=== PATIENT | female | born 1970 | race African-American/Black ===

== ENCOUNTER 2018-07-21 16:40 | Emergency (ER) | payer BC ==
--- OUTSIDE RECORDS SUMMARY | 2018-07-21 16:42 | XMS REPORT ---
:1970 [facility] Address [address] [place] [address] Care Team Providers Name Role Phone Unavailable Unavailable Unavailable Payers Payer Name Policy Type Policy Number Effective Date Expiration Date Problems This patient has no known problems. Allergies, Adverse Reactions, Alerts Allergy Allergy Status Severity Reaction(s) Onset Inactive Treating Comments Name Type Date Date Clinician No Known DA Active U 2018-06 Allergies -17 00:00:0 0 Medications This patient has no known medications.
--- NOTE | 2018-07-21 17:13 | EDPHYS ---
Physician Documentation [facility] Name: Emani Roy Age: 48 yrs Sex: Female : 1970 Arrival Date: 07/21/2018 Time: 16:41 Bed 20 Private MD: Ochoa Barrera B ED Physician Adolfo Frias HPI: 07/21 17:16 This 48 yrs old Black Female presents to ER via Ambulatory with complaints of Hip Pain, snw Leg Pain. 17:16 The patient or guardian reports decreased range of motion, pain. that occurred at home, snw sustained from a chronic condition, There is no obvious deformity, The patient is able to self ambulate. The patient is able to bear their full body weight. The patient's discomfort radiates to the right hamstring, posterior aspect of right knee and right calf. The complaints affect the right hip. Onset: The symptoms/episode began/occurred suddenly, yesterday. Associated signs and symptoms: Loss of consciousness: the patient experienced no loss of consciousness. Severity of symptoms: At their worst the symptoms were moderate. The patient has experienced similar episodes in the past. 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 - Social history:: Smoking status: Patient/guardian denies using tobacco, Patient/guardian denies using alcohol. - Ebola Screening: : Patient negative for fever greater than or equal to 101.5 degrees Fahrenheit, and additional compatible Ebola Virus Disease symptoms Patient denies exposure to infectious person Patient denies travel to an Ebola-affected area in the 21 days before illness onset. ROS: 17:16 Constitutional: Negative for fever, chills, and weight loss, Eyes: Negative for injury, snw pain, redness, and discharge, ENT: Negative for injury, pain, and discharge, Neck: Negative for injury, pain, and swelling, Cardiovascular: Negative for chest pain, palpitations, and edema, Respiratory: Negative for shortness of breath, cough, wheezing, and pleuritic chest pain, Abdomen/GI: Negative for abdominal pain, nausea, vomiting, diarrhea, and constipation, Back: Negative for injury and pain, : Negative for injury, bleeding, discharge, and swelling, Skin: Negative for injury, rash, and discoloration, Neuro: Negative for headache, weakness, numbness, tingling, and seizure. 17:16 MS/extremity: Positive for decreased range of motion, pain, tenderness, of the right leg and right hip. Exam: 17:14 Constitutional: This is a well developed, well nourished patient who is awake, alert, snw and in no acute distress. Head/Face: Normocephalic, atraumatic. Eyes: Pupils equal round and reactive to light, extra-ocular motions intact. Lids and lashes normal. Conjunctiva and sclera are non-icteric and not injected. Cornea within normal limits. Periorbital areas with no swelling, redness, or edema. ENT: Nares patent. No nasal discharge, no septal abnormalities noted. Tympanic membranes are normal and external auditory canals are clear. Oropharynx with no redness, swelling, or masses, exudates, or evidence of obstruction, uvula midline. Mucous membranes moist. Neck: Trachea midline, no thyromegaly or masses palpated, and no cervical lymphadenopathy. Supple, full range of motion without nuchal rigidity, or vertebral point tenderness. No Meningismus. Chest/axilla: Normal chest wall appearance and motion. Nontender with no deformity. No lesions are appreciated. Cardiovascular: Regular rate and rhythm with a normal S1 and S2. No gallops, murmurs, or rubs. Normal PMI, no JVD. No pulse deficits. Respiratory: Lungs have equal breath sounds bilaterally, clear to auscultation and percussion. No rales, rhonchi or wheezes noted. No increased work of breathing, no retractions or nasal flaring. Abdomen/GI: Soft, non-tender, with normal bowel sounds. No distension or tympany. No guarding or rebound. No evidence of tenderness throughout. Back: No spinal tenderness. No costovertebral tenderness. Full range of motion. Skin: Warm, dry with normal turgor. Normal color with no rashes, no lesions, and no evidence of cellulitis. Neuro: Awake and alert, GCS 15, oriented to person, place, time, and situation. Cranial nerves II-XII grossly intact. Motor strength 5/5 in all extremities. Sensory grossly intact. Cerebellar exam normal. Normal gait. Psych: Awake, alert, with orientation to person, place and time. Behavior, mood, and affect are within normal limits. 17:14 Musculoskeletal/extremity: Extremities: grossly normal except: ROM: limited active range of motion due to pain, in the right hip, Circulation is intact in all extremities. Sensation intact. tenderness from right hip down right posterior leg. Vital Signs: 16:46 BP 100 / 64; Pulse 76; Resp 18; Temp 97.7(TE); Pulse Ox 99% on R/A; Weight 137.89 kg; hj Height 5 ft. 6 in. (167.64 cm); Pain 8/10; 16:46 Body Mass Index 49.07 (137.89 kg, 167.64 cm) hj MDM: 16:59 Patient medically screened. snw 17:17 Data reviewed: vital signs, nurses notes. Data interpreted: Pulse oximetry: on room air snw is 99 %. Interpretation: normal. Counseling: I had a detailed discussion with the patient and/or guardian regarding: the historical points, exam findings, and any diagnostic results supporting the discharge/admit diagnosis, lab results, the need for outpatient follow up, to return to the emergency department if symptoms worsen or persist or if there are any questions or concerns that arise at home. Special discussion: Based on the history and exam findings, there is no indication for further emergent testing or inpatient evaluation. I discussed with the patient/guardian the need to see the wind operations supervisor for further evaluation of the symptoms, appt tomorrow. Administered Medications: 17:15 Drug: fentaNYL (PF) 75 mcg Route: IM; Site: right deltoid; jl7 17:28 Follow up: Response: No adverse reaction [facility] 17:15 Drug: Valium 2 mg Route: PO; 7 17:28 Follow up: Response: No adverse reaction [facility] Disposition: 17:45 Co-signature as Attending Physician, Adolfo Frias MD. rn Disposition: 07/21/18 17:12 Discharged to Home. Impression: Sciatica, right side. - Condition is Stable. - Discharge Instructions: Sciatica, Cryotherapy, Heat Therapy. - Prescriptions for orphenadrine citrate 100 mg Oral Tablet Sustained Release - take 1 tablet by ORAL route 2 times per day As needed; 20 tablet. - Medication Reconciliation Form, Thank You Letter, Antibiotic Education, Prescription Opioid Use form. - Follow up: Private Physician; When: Tomorrow; Reason: Recheck today's complaints, Continuance of care. Follow up: Emergency Department; When: As needed; Reason: Worsening of condition. Signatures: Sheeba Atkinson, MANAGER WHOLESALE-C MANAGER WHOLESALE-Csnw Adolfo Frias MD MD rn Joaquin, Henry, RN RN hj Leal, Jahala, RN RN jl7 Corrections: (The following items were deleted from the chart) 17:29 17:12 07/21/2018 17:12 Discharged to Home. Impression: Sciatica, right side. Condition jl7 is Stable. Forms are Medication Reconciliation Form, Thank You Letter, Antibiotic Education, Prescription Opioid Use. Follow up: Private Physician; When: Tomorrow; Reason: Recheck today's complaints, Continuance of care. Follow up: Emergency Department; When: As needed; Reason: Worsening of condition. snw
--- NOTE | 2018-07-21 17:13 | ER ---
Nurse's Notes [facility] Name: Emani Roy Age: 48 yrs Sex: Female : 1970 Arrival Date: 07/21/2018 Time: 16:41 Bed 20 Private MD: Ochoa Barrera B Diagnosis: Sciatica, right side Presentation: 07/21 16:43 Presenting complaint: Patient states: earlier today i started having pain from R hip hj all the way down to the R leg; denies trauma to the area; reports swelling; denies chest pain;. Transition of care: patient was not received from another setting of care. Onset of symptoms was July 21, 2018. Risk Assessment: Do you want to hurt yourself or someone else? Patient reports no desire to harm self or others. Initial Sepsis Screen: Does the patient meet any 2 criteria? No. Patient's initial sepsis screen is negative. Does the patient have a suspected source of infection? No. Patient's initial sepsis screen is negative. Care prior to arrival: None. 16:43 Method Of Arrival: Ambulatory 16:43 Acuity: ARIANNE 4 hj Triage Assessment: 16:46 General: Appears in no apparent distress. uncomfortable, Behavior is calm, cooperative, hj appropriate for age. Pain: Complains of pain in R hip, R leg. 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 - Social history:: Smoking status: Patient/guardian denies using tobacco, Patient/guardian denies using alcohol. - Ebola Screening: : Patient negative for fever greater than or equal to 101.5 degrees Fahrenheit, and additional compatible Ebola Virus Disease symptoms Patient denies exposure to infectious person Patient denies travel to an Ebola-affected area in the 21 days before illness onset. Screenin:45 Abuse screen: Denies threats or abuse. Denies injuries from another. Nutritional hj screening: No deficits noted. Tuberculosis screening: No symptoms or risk factors identified. Fall Risk None identified. Assessment: 17:00 General: Appears in no apparent distress. uncomfortable, Behavior is calm, cooperative, jl7 appropriate for age. Pain: Complains of pain in right hip Pain radiates to right leg Pain currently is 8 out of 10 on a pain scale. Quality of pain is described as sharp, shooting, Is continuous. Neuro: Level of Consciousness is awake, alert, obeys commands, Oriented to person, place, time, situation. Cardiovascular: Patient's skin is warm and dry. Respiratory: Airway is patent Respiratory effort is even, unlabored, Respiratory pattern is regular, symmetrical. Derm: Skin is pink, warm \T\ dry. Musculoskeletal: Range of motion: intact in all extremities. Vital Signs: 16:46 BP 100 / 64; Pulse 76; Resp 18; Temp 97.7(TE); Pulse Ox 99% on R/A; Weight 137.89 kg; hj Height 5 ft. 6 in. (167.64 cm); Pain 8/10; 16:46 Body Mass Index 49.07 (137.89 kg, 167.64 cm) hj ED Course: 16:41 Patient arrived in ED. as 16:42 Ochoa Barrera MD is Private Physician. as 16:44 Triage completed. hj 16:46 Arm band placed on left wrist. hj 16:47 Patient has correct armband on for positive identification. Bed in low position. Call hj light in reach. Side rails up X 1. 16:50 Sheeba Atkinson FNP-C is PHCP. snw 16:50 Adolfo Frias MD is Attending Physician. snw 17:03 Barbie Knapp RN is Primary Nurse. jl7 17:28 No provider procedures requiring assistance completed. Patient did not have IV access jl7 during this emergency room visit. Administered Medications: 17:15 Drug: fentaNYL (PF) 75 mcg Route: IM; Site: right deltoid; jl7 17:28 Follow up: Response: No adverse reaction jl7 17:15 Drug: Valium 2 mg Route: PO; jl7 17:28 Follow up: Response: No adverse reaction jl7 Outcome: 17:12 Discharge ordered by MD. knutson 17:28 Discharged to home ambulatory. jl7 17:28 Condition: stable 17:28 Discharge instructions given to patient, Instructed on discharge instructions, follow up and referral plans. medication usage, Demonstrated understanding of instructions, follow-up care, medications, Prescriptions given X 1. 17:29 Patient left the ED. jl7 Signatures: Sheeba Atkinson, EDUCATIONAL GUIDANCE COUNSELOR-C EDUCATIONAL GUIDANCE COUNSELOR-Csnw Cecilia Higgins Henry RN RAISA Barbie Knapp RN RN jl7 Corrections: (The following items were deleted from the chart) 16:48 16:46 Pulse 76bpm; Resp 18bpm; Pulse Ox 99% RA; Temp 97.7F Temporal; 137.89 kg; Height hj 5 ft. 6 in.; BMI: 49.0; Pain 8/10; hj 16:49 16:46 Pulse 76bpm; Resp 18bpm; Pulse Ox 99% RA; Temp 97.7F Temporal; 137.89 kg; Height hj 5 ft. 6 in.; BMI: 49.0; Pain 8/10; hj
[2018-07-21] MEDS ORDERED: DIAZEPAM 2 MG TABLET ONE (17:26)
[2018-07-21] MEDS ORDERED: FENTANYL CITR 100 MCG/2 ML ONE (17:26)
== END 2018-07-21 17:29 | disposition home or self-care (01) ==
LOC: ER 16:40
DX: M54.31 Sciatica, right side (principal); M10.9 Gout, unspecified
CPT/HCPCS: 96372; 99283; J3010

== ENCOUNTER 2019-02-22 18:26 | Emergency (ER) | payer BC ==
--- OUTSIDE RECORDS SUMMARY | 2019-02-22 18:36 | XMS REPORT ---
:1970 [facility] Address [address] [place] [id number] Care Team Providers Name Role Phone Unavailable [...]
--- NOTE | 2019-02-22 19:58 | RAD REPORT ---
EXAM DESCRIPTION: CT - Head C Spine Mpr Wo Con - 02/22/2019 7:35 pm CLINICAL HISTORY: Head and neck injury status post fall. Head and neck pain COMPARISON: None. TECHNIQUE: Computed axial tomography of the head and cervical spine was obtained. Sagittal and coronal reconstruction was performed. All CT scans are performed using dose optimization technique as appropriate and may include automated exposure control or mA/KV adjustment according to patient size. FINDINGS: An intracranial bleed is not seen. The ventricles are normal in caliber. An extra-axial fl uid collection is not noted Empty sella turcica. Fluid within the visualized sinuses and mastoids is not seen A cervical fracture is not visualized. No dislocation is noted. The skull and dens are sclerotic IMPRESSION: No acute intracranial abnormality is seen. A cervical fracture is not visualized. If the patient continues to have symptoms to suggest intracra nial /spinal cord pathology then MRI would be recommended The skull and dens are sclerotic. This could be secondary to a metabolic disease, hematologic causes or blastic metastases. This should be correlated clinically
--- NOTE | 2019-02-22 20:18 | RAD REPORT ---
EXAM DESCRIPTION: RAD - Shoulder Left 2 View - 02/22/2019 8:06 pm CLINICAL HISTORY: Left shoulder pain status post fall FINDINGS: No fracture or dislocation is seen.
--- NOTE | 2019-02-22 21:18 | ER ---
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 Mechanism of Injury: Fall from standing position. Trauma event details: Injury occurred in the [facility], Injury occurred: at home. Injury occurred: February 22, 2019 Injury occurred at: 16:30. 18:40 Acuity: ARIANNE 3 aj 19:39 Transition of care: patient was not received from another setting of care. Onset of mg2 symptoms was February 22, 2019. Risk Assessment: Do you want to hurt yourself or someone else? Patient reports no desire to harm self or others. Initial Sepsis Screen: Does the patient meet any 2 criteria? No. Patient's initial sepsis screen is negative. Does the patient have a suspected source of infection? No. Patient's initial sepsis screen is negative. Care prior to arrival: None. 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: 21:44 LMP unknown mg2 Trauma Activation: Not Applicable Physician: ED Physician; Name: ; Notified At: ; Arrived At: Physician: General Surgeon; Name: ; Notified At: ; Arrived At: Physician: Radiology; Name: ; Notified At: ; Arrived At: Physician: Respiratory; Name: ; Notified At: ; Arrived At: Physician: Lab; Name: ; Notified At: ; Arrived At: Historical: - Allergies: 18:42 No Known Drug Allergies; aj - Home Meds: 19:39 allopurinol 300 mg Oral tab 1 tab once daily [Active]; colchicine 0.6 mg Oral tab 1 tab mg2 once daily [Active]; indomethacin 50 mg Oral cap 1 cap 3 times per day [Active]; prednisone 2.5 mg Oral tab [Active]; - PMHx: 19:39 Gout; Lupus; mg2 - Immunization history:: Flu vaccine status is unknown. - Social history:: Smoking status: unknown. - Immunization history: Last tetanus immunization: unknown. - Ebola Screening: : No symptoms or risks identified at this time. Screenin:35 Abuse screen: Denies threats or abuse. Denies injuries from another. Tuberculosis mg2 screening: No symptoms or risk factors identified. 21:43 Nutritional screening: No deficits noted. Fall Risk mg2 Primary Survey: 19:36 NO uncontrolled hemorrhage observed. A: The patient is alert. Airway: patent. mg2 Breathing/Chest: Respiratory pattern: regular, Respiratory effort: spontaneous, unlabored. Circulation: Skin color: pink. Disability Alert. Exposure/Environment: All clothing and personal items were removed. Forensic evidence collection is not deemed to be indicated at this time. Items placed in patient belonging bag. There is no evidence of uncontrolled external bleeding. No obvious injuries are noted at this time. 21:47 Reassessment Breathing/Chest Respiratory pattern Regular Respiratory effort Spontaneous mg2 Unlabored. Secondary Survey: 19:36 HEENT: No deficits noted. Gastrointestinal: No deficits noted. : No deficits noted. mg2 Musculoskeletal: Circulation, motion, and sensation intact. Capillary refill < 3 seconds, Reports pain in left arm and posterior aspect of left shoulder and anterior aspect of left shoulder. Assessment: 18:40 General: Appears in no apparent distress. comfortable, Behavior is calm, cooperative, aj appropriate for age. Pain: Complains of pain in anterior aspect of left shoulder and posterior aspect of left shoulder. Musculoskeletal: Reports pain in anterior aspect of left shoulder and posterior aspect of left shoulder. Vital Signs: 18:40 BP 145 / 81; Pulse 74; Resp 18; Temp 97.6; Pulse Ox 98% on R/A; Weight 142.88 kg; aj Height 5 ft. 6 in. (167.64 cm); 20:33 Pulse 70; Resp 18; Pulse Ox 100% on R/A; mg2 21:40 BP 125 / 78; Pulse 80; Resp 18; Temp 98; Pulse Ox 100% on R/A; Pain 0/10; mg2 18:40 Body Mass Index 50.84 (142.88 kg, 167.64 cm) aj [place] Coma Score: 18:40 Eye Response: spontaneous(4). Verbal Response: oriented(5). Motor Response: obeys aj commands(6). Total: 15. Trauma Score (Adult): 18:40 Eye Response: spontaneous(1); Verbal Response: oriented(1); Motor Response: obeys aj commands(2); Systolic BP: > 89 mm Hg(4); Respiratory Rate: 10 to 29 per min(4); Mikaela Score: 15; Trauma Score: 12 21:40 Eye Response: spontaneous(1); Verbal Response: oriented(1); Motor Response: obeys mg2 commands(2); Systolic BP: > 89 mm Hg(4); Respiratory Rate: 10 to 29 per min(4); Mikaela Score: 15; Trauma Score: 12 ED Course: 18:28 Patient arrived in ED. tw3 18:41 Triage completed. aj 18:42 Arm band placed on right wrist. Patient placed in waiting room, Patient notified of aj wait time. 19:15 Tiburcio Hernandez MD is Attending Physician. ps1 19:35 Mark Pina, RAISA is Primary Nurse. mg2 19:37 CT Head C Spine In Process Unspecified. EDMS 19:39 Patient maintains SpO2 saturation greater than 95% on room air. mg2 19:40 Patient has correct armband on for positive identification. mg2 20:08 XRAY Shoulder LEFT 2 view In Process Unspecified. EDMS 21:45 Thermoregulation: warm blanket given to patient. mg2 21:46 No provider procedures requiring assistance completed. Patient did not have IV access mg2 during this emergency room visit. Administered Medications: No medications were administered Intake: 21:46 PO: 0ml; Total: 0ml. mg2 Outcome: 21:18 Discharge ordered by . ps1 21:46 Discharged to home ambulatory. mg2 21:46 Condition: stable 21:46 Discharge instructions given to patient, Instructed on discharge instructions, follow up and referral plans. medication usage, Demonstrated understanding of instructions, follow-up care, medications, Prescriptions given X 3. 21:46 Patient's length of stay was not longer than 2 hours. 21:47 Patient left the ED. mg2 Signatures: Dispatcher [employer] EDMarivel Umana, RN RN Sushma Wagner tw3 Tiburcio Hernandez MD MD ps1 Mark Pina, RAISA KLINE mg2
--- NOTE | 2019-02-22 21:18 | EDPHYS ---
Physician Documentation [facility] Name: Emani Roy Age: 48 yrs Sex: Female : 1970 Arrival Date: 02/22/2019 Time: 18:28 Bed 24 Private MD: ED Physician Tiburcio Hernandez HPI: 02/22 21:13 This 48 yrs old Black Female presents to ER via Ambulatory with complaints of Fall ps1 Injury, Shoulder Pain. 21:13 patient states that she fell over her husbands boot. No LOC. Pain localized to left ps1 shoulder and neck. Paraspinal and trapezius spasm. No obvious fracture. No blood thinners. 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 - Social history:: Smoking status: unknown. - Immunization history: Last tetanus immunization: unknown. - Ebola Screening: : No symptoms or risks identified at this time. ROS: 21:13 Constitutional: Negative for fever, chills, and weight loss, Eyes: Negative for injury, ps1 pain, redness, and discharge, ENT: Negative for injury, pain, and discharge, Cardiovascular: Negative for chest pain, palpitations, and edema, Respiratory: Negative for shortness of breath, cough, wheezing, and pleuritic chest pain, Abdomen/GI: Negative for abdominal pain, nausea, vomiting, diarrhea, and constipation. 21:13 Neuro: Negative for headache, weakness, numbness, tingling, and seizure. 21:13 Neck: Positive for stiffness, tenderness. 21:13 MS/extremity: Positive for pain, of the left arm and posterior aspect of left shoulder and anterior aspect of left shoulder. Exam: 21:13 Constitutional: This is a well developed, well nourished patient who is awake, alert, ps1 and in no acute distress. Head/Face: Normocephalic, atraumatic. Eyes: Pupils equal round and reactive to light, extra-ocular motions intact. Lids and lashes normal. Conjunctiva and sclera are non-icteric and not injected. Chest/axilla: Normal chest wall appearance and motion. Nontender with no deformity. No lesions are appreciated. Cardiovascular: Regular rate and rhythm. No gallops, murmurs, or rubs. Normal PMI, no JVD. No pulse deficits. Respiratory: Lungs have equal breath sounds bilaterally, clear to auscultation and percussion. No rales, rhonchi or wheezes noted. No increased work of breathing, no retractions or nasal flaring. Abdomen/GI: Soft, non-tender, with normal bowel sounds. No distension or tympany. No guarding or rebound. No evidence of tenderness throughout. 21:13 Neck: C-spine: left paraspinal spasm. 21:13 Musculoskeletal/extremity: Extremities: grossly normal except: noted in the left arm and posterior aspect of left shoulder and anterior aspect of left shoulder: tenderness. Vital Signs: 18:40 BP 145 / 81; Pulse 74; Resp 18; Temp 97.6; Pulse Ox 98% on R/A; Weight 142.88 kg; aj Height 5 ft. 6 in. (167.64 cm); 20:33 Pulse 70; Resp 18; Pulse Ox 100% on R/A; mg2 21:40 BP 125 / 78; Pulse 80; Resp 18; Temp 98; Pulse Ox 100% on R/A; Pain 0/10; mg2 18:40 Body Mass Index 50.84 (142.88 kg, 167.64 cm) Mikaela Coma Score: 18:40 Eye Response: spontaneous(4). Verbal Response: oriented(5). Motor Response: obeys aj commands(6). Total: 15. Trauma Score (Adult): 18:40 Eye Response: spontaneous(1); Verbal Response: oriented(1); Motor Response: obeys aj commands(2); Systolic BP: > 89 mm Hg(4); Respiratory Rate: 10 to 29 per min(4); Mikaela Score: 15; Trauma Score: 12 21:40 Eye Response: spontaneous(1); Verbal Response: oriented(1); Motor Response: obeys mg2 commands(2); Systolic BP: > 89 mm Hg(4); Respiratory Rate: 10 to 29 per min(4); [place] Score: 15; Trauma Score: 12 MDM: 19:27 Patient medically screened. ps1 21:13 Data reviewed: vital signs, nurses notes, radiologic studies, and as a result, I will ps1 discharge patient. Counseling: I had a detailed discussion with the patient and/or guardian regarding: the historical points, exam findings, and any diagnostic results supporting the discharge/admit diagnosis, radiology results, the need for outpatient follow up, to return to the emergency department if symptoms worsen or persist or if there are any questions or concerns that arise at home. 02/22 18:43 Order name: XRAY Shoulder LEFT 2 view; Complete Time: 21:06 aj 02/22 19:19 Order name: CT Head C Spine; Complete Time: 21:06 ps1 Administered Medications: No medications were administered Disposition: 02/22/19 21:18 Discharged to Home. Impression: Pain in left arm, Cervicalgia. - Condition is Stable. - Discharge Instructions: Musculoskeletal Pain. - Prescriptions for Anaprox DS 550 mg Oral Tablet - take 1 tablet by ORAL route every 12 hours As needed; 20 tablet. Robaxin 500 mg Oral Tablet - take 2 tablet by ORAL route every 6 hours As needed; 40 tablet. Medrol (Paul) 4 mg Oral Tablets, Dose Pack - take 1 tablet by ORAL route as directed - follow package instructions; 1 packet. - Medication Reconciliation Form, Thank You Letter, Antibiotic Education, Prescription Opioid Use, Work release form form. - Follow up: Emergency Department; When: As needed; Reason: Worsening of condition. Follow up: Private Physician; When: As needed; Reason: Further diagnostic work-up, Recheck today's complaints, Continuance of care, Re-evaluation by your physician. - Problem is new. - Symptoms are unchanged. Signatures: Dispatcher [employer] EDMS Marivel Niño RN RN Tiburcio Marion MD MD ps1 Mark Pina RN RN mg2 Corrections: (The following items were deleted from the chart) 21:47 21:18 02/22/2019 21:18 Discharged to Home. Impression: Pain in left arm; Cervicalgia. mg2 Condition is Stable. Forms are Medication Reconciliation Form, Thank You Letter, Antibiotic Education, Prescription Opioid Use. Follow up: Emergency Department; When: As needed; Reason: Worsening of condition. Follow up: Private Physician; When: As needed; Reason: Further diagnostic work-up, Recheck today's complaints, Continuance of care, Re-evaluation by your physician. Problem is new. Symptoms are unchanged. ps1
== END 2019-02-22 21:47 | disposition home or self-care (01) ==
LOC: ER 18:26
DX: M54.2 Cervicalgia (principal); M79.602 Pain in left arm; M10.9 Gout, unspecified; W01.0XXA Fall on same level from slipping, tripping and stumbling without subsequent striking against object, initial encounter; Y93.9 Activity, unspecified; Y92.9 Unspecified place or not applicable
CPT/HCPCS: 70450; 72125; 99284

== ENCOUNTER 2019-07-15 00:03 | Emergency (ER) | payer BC ==
[2019-07-15] MEDS ORDERED: LORazepam 2 MG/ML VIAL ONE (01:18)
[2019-07-15] MEDS ORDERED: ONDANSETRON 4 MG (ODT) TAB ONE (01:19)
[2019-07-15] MEDS ORDERED: HYDROCODONE/APAP 5/325 MG TAB ONE (01:19)
[2019-07-15 02:30] LABS: Basophils % 1.3 % (0-1.3); Hematocrit 32.4 % (36.0-45.0); Lymphocytes % 34.5 % (15.3-44.8); MPV 11.6 fL (7.6-11.3); RBC Red Blood Cell Count 4.15 M/uL (3.86-4.86)
[2019-07-15 02:42] LABS: Albumin 3.3 g/dL (3.4-5.0); Bilirubin Direct 0.1 mg/dL (0-0.2); Bilirubin Total 0.3 mg/dL (0.2-1.0); Potassium 3.8 mmol/L (3.5-5.1); Protein, Total 7.4 g/dL (6.4-8.2)
--- NOTE | 2019-07-15 03:42 | ER ---
Nurse's Notes [facility] Name: Emani Roy Age: 49 yrs Sex: Female : 1970 Arrival Date: 07/15/2019 Time: 00:16 Bed 15 Private MD: Diagnosis: arthralgias Presentation: 07/15 00:00 Presenting complaint: EMS states: "We were toned for right ankle pain all the way up to cc3 right leg and tingling sensation from right knee to foot. Patient had right hip replacement a month ago". Transition of care: patient was not received from another setting of care. Onset of symptoms was July 15, 2019. Risk Assessment: Do you want to hurt yourself or someone else? Patient reports no desire to harm self or others. Initial Sepsis Screen: Does the patient meet any 2 criteria? No. Patient's initial sepsis screen is negative. Does the patient have a suspected source of infection? No. Patient's initial sepsis screen is negative. Care prior to arrival: Medication(s) given: Patient took Aspirin and Aleve at 2200H tonight. 00:00 Method Of Arrival: EMS: [facility] cc3 00:00 Acuity: ARIANNE 3 cc3 Triage Assessment: 00:00 General: Appears in no apparent distress. uncomfortable, Behavior is calm, cooperative, cc3 appropriate for age. Pain: Complains of pain in right ankle and right leg Pain currently is 6 out of 10 on a pain scale. Quality of pain is described as aching, Pain began 1 hour ago. EENT: No signs and/or symptoms were reported regarding the EENT system. Neuro: Level of Consciousness is awake, alert, obeys commands, Oriented to person, place, time, situation, Appropriate for age Hiv Nurse are equal bilaterally Moves all extremities. Speech is normal, Facial symmetry appears normal, Pupils are PERRLA. Cardiovascular: Denies chest pain, Heart tones S1 S2 present Capillary refill < 3 seconds in bilateral fingers Patient's skin is warm and dry. Respiratory: Airway is patent Respiratory effort is even, unlabored, Respiratory pattern is regular, symmetrical, Breath sounds are clear bilaterally. GI: Abdomen is round obese, Bowel sounds present X 4 quads. Abd is soft and non tender X 4 quads. : No signs and/or symptoms were reported regarding the genitourinary system. Derm: Skin is intact, is healthy with good turgor, Skin is normal, black. Musculoskeletal: Circulation, motion, and sensation intact. Range of motion: limited in right leg. 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 - Social history:: Smoking status: Patient/guardian denies using tobacco, never smoked. - Ebola Screening: : No symptoms or risks identified at this time. Screenin:00 Abuse screen: Denies threats or abuse. Denies injuries from another. Nutritional cc3 screening: No deficits noted. Tuberculosis screening: No symptoms or risk factors identified. Fall Risk Ambulatory Aid- None/Bed Rest/Nurse Assist (0 pts). Gait- Normal/Bed Rest/Wheelchair (0 pts) Mental Status- Oriented to own ability (0 pts). Assessment: 00:00 General: see triage assessment. cc3 01:18 Reassessment: Patient appears in no apparent distress at this time. Patient and/or cc3 family updated on plan of care and expected duration. Pain level reassessed. Patient is alert, oriented x 3, equal unlabored respirations, skin warm/dry/pink. 02:09 Reassessment: Patient appears in no apparent distress at this time. Patient and/or cc3 family updated on plan of care and expected duration. Pain level reassessed. Patient is alert, oriented x 3, equal unlabored respirations, skin warm/dry/pink. 03:05 Reassessment: Patient appears in no apparent distress at this time. Patient and/or cc3 family updated on plan of care and expected duration. Pain level reassessed. Patient is alert, oriented x 3, equal unlabored respirations, skin warm/dry/pink. 03:50 Reassessment: Patient appears in no apparent distress at this time. Patient and/or cc3 family updated on plan of care and expected duration. Pain level reassessed. Patient is alert, oriented x 3, equal unlabored respirations, skin warm/dry/pink. Dr. Andrew discharged the patient home with prescription given. IV cannula removed and patient left ER vitally stable by wheelchair escorted by janitorial tech Darrius and her family. No valuables left in the patient's room. Patient denies pain at this time. Patient states feeling better. Patient states symptoms have improved. Vital Signs: 00:00 BP 169 / 104; Pulse 80; Resp 17 S; Temp 98.2(O); Pulse Ox 97% on R/A; Weight 141.97 kg cc3 (R); Height 5 ft. 6 in. (167.64 cm) (R); Pain 6/10; 00:39 BP 150 / 82; Pulse 85; Resp 17 S; Pulse Ox 100% on R/A; cc3 01:40 BP 137 / 94; Pulse 86; Resp 18 S; Pulse Ox 100% on R/A; cc3 02:10 BP 136 / 95; Pulse 87; Resp 16 S; Pulse Ox 98% on R/A; cc3 03:04 BP 128 / 80; Pulse 88; Resp 16 S; Pulse Ox 100% on R/A; cc3 03:45 BP 123 / 87; Pulse 85; Resp 15 S; Pulse Ox 99% on R/A; Pain 0/10; cc3 00:00 Body Mass Index 50.52 (141.97 kg, 167.64 cm) cc3 ED Course: 00:00 Patient has correct armband on for positive identification. Placed in gown. Bed in low cc3 position. Call light in reach. Side rails up X2. Pulse ox on. NIBP on. 00:00 Arm band placed on right wrist. Patient notified of wait time. cc3 00:16 Patient arrived in ED. cc3 00:16 Elsy Jesus is Primary Nurse. cc3 00:28 Triage completed. cc3 00:35 Sheeba Atkinson FNP-C is [facility]. snw 00:35 Venu Andrew MD is Attending Physician. snw 01:28 Missed attempt(s): 20 gauge in right antecubital area. Bleeding controlled, band aid ds4 applied, catheter tip intact. 01:30 Inserted saline lock: 22 gauge in right wrist, using aseptic technique. Blood collected.ds4 01:44 Basic Metabolic Panel Sent. ds4 01:44 Hepatic Function Sent. ds4 01:44 CBC with Diff Sent. ds4 01:44 Creatinine for Radiology Sent. ds4 02:07 Ankle Right 3 View XRAY In Process Unspecified. EDMS 03:50 No provider procedures requiring assistance completed. IV discontinued, intact, cc3 bleeding controlled, No redness/swelling at site. Pressure dressing applied. Administered Medications: 01:40 Drug: [facility] 5 mg-325 mg 1 tabs {Note: RASS 0.} Route: PO; cc3 02:11 Follow up: Response: No adverse reaction; Pain is decreased; RASS: Alert and Calm (0) cc3 01:40 Drug: Zofran 4 mg Route: PO; cc3 02:12 Follow up: Response: No adverse reaction; Nausea is decreased cc3 01:45 Drug: Ativan 1 mg Route: IVP; Site: right wrist; cc3 02:11 Follow up: Response: No adverse reaction cc3 Outcome: 03:41 Discharge ordered by . tw4 03:50 Discharged to home via wheelchair, with family. cc3 03:50 Condition: stable 03:50 Discharge instructions given to patient, Instructed on discharge instructions, follow up and referral plans. medication usage, Demonstrated understanding of instructions, follow-up care, medications, Prescriptions given X 1. 04:12 Patient left the ED. cc3 Signatures: Dispatcher [employer] EDKS Sheeba Atkinson, NADYAC DOCTOR OF PHARMACY-CsnDarrius Roa ds4 Venu Andrew MD MD tw4 Elsy Jesus cc3
--- NOTE | 2019-07-15 03:42 | EDPHYS ---
Physician Documentation [facility] Name: Emani Roy Age: 49 yrs Sex: Female : 1970 Arrival Date: 07/15/2019 Time: 00:16 Bed 15 Private MD: ED Physician Venu Andrew HPI: 07/15 01:11 This 49 yrs old Black Female presents to ER via EMS with complaints of right ankle and snw right leg pain. 01:11 The patient presents with pain, spasm, tenderness. The complaints affect the right snw ankle, lateral aspect of right foot, anterior aspect of right ankle and dorsum of right foot. Context: The problem was sustained at home, resulted from pain awoke pt from sleep and she was unable to move right ankle/foot/leg, the patient is not able to bear weight, the patient is not able to ambulate, Problem is a result from a previous injury: pt had right hip replacement surgery last month 2nd to avn at 10 and this was to replace, rx asa 81mg po BID. Onset: The symptoms/episode began/occurred suddenly, just prior to arrival. Modifying factors: The symptoms are alleviated by nothing. Treatment prior to arrival includes: EMS came to load pt as she was unable to tolerate touch and then the pain eased up and she is much more comfortable at this time.. Severity of symptoms: At their worst the symptoms were incapacitating, in the emergency department the symptoms have improved. The patient has not experienced similar symptoms in the past. It is unknown whether or not the patient has recently seen a physician. 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 - Social history:: Smoking status: Patient/guardian denies using tobacco, never smoked. - Ebola Screening: : No symptoms or risks identified at this time. ROS: 01:09 Constitutional: Negative for fever, chills, and weight loss, Eyes: Negative for injury, snw pain, redness, and discharge, ENT: Negative for injury, pain, and discharge, Neck: Negative for injury, pain, and swelling, Cardiovascular: Negative for chest pain, palpitations, and edema, Respiratory: Negative for shortness of breath, cough, wheezing, and pleuritic chest pain, Abdomen/GI: Negative for abdominal pain, nausea, vomiting, diarrhea, and constipation, Back: Negative for injury and pain, : Negative for injury, bleeding, discharge, and swelling, Skin: Negative for injury, rash, and discoloration, Neuro: Negative for headache, weakness, numbness, tingling, and seizure, Psych: Negative for depression, anxiety, suicide ideation, homicidal ideation, and hallucinations. 01:09 MS/extremity: Positive for pain, swelling, tenderness, of the right ankle, lateral aspect of right foot, anterior aspect of right ankle and dorsum of right foot. Exam: 01:09 Constitutional: This is a well developed, well nourished patient who is awake, alert, snw and in no acute distress. Head/Face: Normocephalic, atraumatic. Eyes: Pupils equal round and reactive to light, extra-ocular motions intact. Lids and lashes normal. Conjunctiva and sclera are non-icteric and not injected. Cornea within normal limits. Periorbital areas with no swelling, redness, or edema. ENT: Nares patent. No nasal discharge, no septal abnormalities noted. Tympanic membranes are normal and external auditory canals are clear. Oropharynx with no redness, swelling, or masses, exudates, or evidence of obstruction, uvula midline. Mucous membranes moist. Neck: Trachea midline, no thyromegaly or masses palpated, and no cervical lymphadenopathy. Supple, full range of motion without nuchal rigidity, or vertebral point tenderness. No Meningismus. Chest/axilla: Normal chest wall appearance and motion. Nontender with no deformity. No lesions are appreciated. Cardiovascular: Regular rate and rhythm with a normal S1 and S2. No gallops, murmurs, or rubs. Normal PMI, no JVD. No pulse deficits. Respiratory: Lungs have equal breath sounds bilaterally, clear to auscultation and percussion. No rales, rhonchi or wheezes noted. No increased work of breathing, no retractions or nasal flaring. Abdomen/GI: Soft, non-tender, with normal bowel sounds. No distension or tympany. No guarding or rebound. No evidence of tenderness throughout. Back: No spinal tenderness. No costovertebral tenderness. Full range of motion. Skin: Warm, dry with normal turgor. Normal color with no rashes, no lesions, and no evidence of cellulitis. MS/ Extremity: Pulses equal, no cyanosis. Neurovascular intact. Full, normal range of motion. Neuro: Awake and alert, GCS 15, oriented to person, place, time, and situation. Cranial nerves II-XII grossly intact. Motor strength 5/5 in all extremities. Sensory grossly intact. Cerebellar exam normal. Normal gait. Psych: Awake, alert, with orientation to person, place and time. Behavior, mood, and affect are within normal limits. Vital Signs: 00:00 BP 169 / 104; Pulse 80; Resp 17 S; Temp 98.2(O); Pulse Ox 97% on R/A; Weight 141.97 kg cc3 (R); Height 5 ft. 6 in. (167.64 cm) (R); Pain 6/10; 00:39 BP 150 / 82; Pulse 85; Resp 17 S; Pulse Ox 100% on R/A; cc3 01:40 BP 137 / 94; Pulse 86; Resp 18 S; Pulse Ox 100% on R/A; cc3 02:10 BP 136 / 95; Pulse 87; Resp 16 S; Pulse Ox 98% on R/A; cc3 03:04 BP 128 / 80; Pulse 88; Resp 16 S; Pulse Ox 100% on R/A; cc3 03:45 BP 123 / 87; Pulse 85; Resp 15 S; Pulse Ox 99% on R/A; Pain 0/10; cc3 00:00 Body Mass Index 50.52 (141.97 kg, 167.64 cm) cc3 MDM: 00:52 Patient medically screened. snw 02:28 Data reviewed: vital signs, nurses notes. Data interpreted: Pulse oximetry: on room air snw is 98 %. Interpretation: normal. Counseling: I had a detailed discussion with the patient and/or guardian regarding: the historical points, exam findings, and any diagnostic results supporting the discharge/admit diagnosis. Transition of care: After a detail discussion of the patient's case, care is transferred to Venu Andrew MD. 07/15 01:09 Order name: Basic Metabolic Panel; Complete Time: 03:39 snw 07/15 01:09 Order name: CBC with Diff; Complete Time: 03:39 snw 07/15 01:09 Order name: Creatinine for Radiology; Complete Time: 03:39 snw 07/15 01:09 Order name: Hepatic Function; Complete Time: 03:39 snw 07/15 01:09 Order name: Ankle Right 3 View XRAY snw 07/15 01:09 Order name: IV Saline Lock; Complete Time: :44 snw 07/15 01:09 Order name: Labs collected and sent; Complete Time: :44 snw Administered Medications: 01:40 Drug: [place] 5 mg-325 mg 1 tabs {Note: RASS 0.} Route: PO; cc3 02:11 Follow up: Response: No adverse reaction; Pain is decreased; RASS: Alert and Calm (0) cc3 01:40 Drug: Zofran 4 mg Route: PO; cc3 02:12 Follow up: Response: No adverse reaction; Nausea is decreased cc3 01:45 Drug: Ativan 1 mg Route: IVP; Site: right wrist; cc3 02:11 Follow up: Response: No adverse reaction cc3 Disposition: 07/15/19 03:41 Discharged to Home. Impression: arthralgias. - Condition is Stable. - Discharge Instructions: Leg Cramps, Ankle Pain. - Prescriptions for Tramadol 50 mg Oral Tablet - take 1 tablet by ORAL route every 8 hours as needed; 12 tablet. - Medication Reconciliation Form, Thank You Letter, Antibiotic Education, Prescription Opioid Use form. - Follow up: Private Physician; When: Upon discharge from the Emergency Department; Reason: If symptoms return, Recheck today's complaints, Continuance of care. - Problem is an ongoing problem. - Symptoms have improved. Addendum: 07/19/2019 05:42 Co-signature as Attending Physician, Venu Andrew MD I agree with the assessment and t w4 plan of care. Signatures: Dispatcher [facility] Human [facility] Ssd EDSheeba Dubois, SOFTWARE VALIDATION TECHNICIAN-C SOFTWARE VALIDATION TECHNICIAN-Csnw Venu Andrew MD MD tw4 Elsy Jesus cc3 Corrections: (The following items were deleted from the chart) 07/15 04:12 03:41 07/15/2019 03:41 Discharged to Home. Impression: arthralgias. Condition is cc3 Stable. Forms are Medication Reconciliation Form, Thank You Letter, Antibiotic Education, Prescription Opioid Use. Follow up: Private Physician; When: Upon discharge from the Emergency Department; Reason: If symptoms return, Recheck today's complaints, Continuance of care. Problem is an ongoing problem. Symptoms have improved. tw4
[2019-07-15 04:23] VITALS: BP 128/80; O2SAT 100
--- NOTE | 2019-07-15 08:50 | RAD REPORT ---
EXAM DESCRIPTION: RAD - Ankle Right 3 View - 07/15/2019 2:07 am CLINICAL HISTORY: Right ankle pain FINDINGS: No fracture or dislocation is seen. Large plantar calcaneal spur. Osteoarthritis involves the ankle consisting joint space narrowing and osteophytes
== END 2019-07-15 04:12 | disposition home or self-care (01) ==
LOC: ER 00:03
DX: M25.571 Pain in right ankle and joints of right foot (principal); M10.9 Gout, unspecified
CPT/HCPCS: 36415; 80048; 80076; 85025; 96374; 99284

== ENCOUNTER 2020-10-31 21:32 | Emergency (ER) | payer BC ==
[2020-10-31] MEDS ORDERED: HYDROCODONE/APAP 10/325 TAB ONE (22:28)
--- NOTE | 2020-10-31 23:46 | EDPHYS ---
Physician Documentation [facility] Name: Emani Roy Age: 50 yrs Sex: Female : 1970 Arrival Date: 10/31/2020 Time: 21:36 Bed 15 Private MD: ED Physician Adolfo Frias HPI: 10/31 22:06 This 50 yrs old Black Female presents to ER via Ambulatory with complaints of Arm jmm Injury. 22:06 The patient or guardian complains of injury, pain. Onset: The symptoms/episode jmm began/occurred acutely, just prior to arrival. Modifying factors: The symptoms are alleviated by remaining still, the symptoms are aggravated by movement. This is a 50 year old female with a history of gout, lupus that presents to the ED with complaints of right shoulder pain after a fall which occurred just prior to arrival. Patient states she landed directly on the right elbow. Denies elbow or wrist pain. . Historical: - Allergies: 21:55 No Known Allergies; em - PMHx: 21:55 Gout; Lupus; em - PSHx: 21:55 right hip replacement; em - Immunization history:: Adult Immunizations up to date. - Social history:: Smoking status: Patient denies any tobacco usage or history of. ROS: 22:06 Constitutional: Negative for fever, chills, and weight loss, Cardiovascular: Negative jmm for chest pain, palpitations, and edema, Respiratory: Negative for shortness of breath, cough, wheezing, and pleuritic chest pain. 22:06 MS/extremity: Positive for injury or acute deformity, pain. 22:06 All other systems are negative. Exam: 22:06 Constitutional: This is a well developed, well nourished patient who is awake, alert, jmm and in no acute distress. Head/Face: atraumatic. Eyes: EOMI, no conjunctival erythema appreciated ENT: Moist Mucus Membranes Neck: Trachea midline, Supple Chest/axilla: Normal chest wall appearance and motion. Cardiovascular: Regular rate and rhythm. No edema appreciated Respiratory: Normal respirations, no respiratory distress appreciated Abdomen/GI: Non distended, soft Back: Normal ROM Skin: General appearance color normal 22:06 Musculoskeletal/extremity: ROM: intact in all extremities, Circulation is intact in all extremities. Right shoulder held in internal rotation and adduction, full radial pulse compartments are soft, full cap parts cutter strength, no obvious deformity, no bony tenderness noted to the right elbow or right wrist, NVI. Vital Signs: 21:53 BP 151 / 101; Pulse 106; Resp 18; Temp 97.9(O); Pulse Ox 98% on R/A; Weight 134.72 kg; em Height 5 ft. 6 in. (167.64 cm); Pain 8/10; 23:11 BP 124 / 82; Pulse 98; Resp 16; Pulse Ox 98% on R/A; zb 21:53 Body Mass Index 47.94 (134.72 kg, 167.64 cm) em MDM: 21:59 Patient medically screened. [facility] 23:44 Data reviewed: vital signs, nurses notes. Counseling: I had a detailed discussion with the [facility] the patient and/or guardian regarding: the historical points, exam findings, and any diagnostic results supporting the discharge/admit diagnosis, radiology results, the need for outpatient follow up, to return to the emergency department if symptoms worsen or persist or if there are any questions or concerns that arise at home. ED course: Xray negative. Patient is advised to follow up with pcp/ortho for reevaluation. patient understood and agrees with the plan of care. . 10/31 22:03 Order name: Shoulder Right (2 View) XRAY [facility] 10/31 23:34 Order name: Sling; Complete Time: 23:57 [facility] Administered Medications: 22:15 Drug: [place] 10 mg-325 mg 1 tabs Route: PO; zb 23:08 Follow up: Response: No adverse reaction; Pain is decreased; RASS: Alert and Calm (0) zb Disposition: 11/01 00:25 Co-signature as Attending Physician, Adolfo Frias MD. rn Disposition: 10/31/20 23:45 Discharged to Home. Impression: Other sprain of right shoulder joint. - Condition is Stable. - Discharge Instructions: Shoulder Pain. - Prescriptions for orphenadrine citrate 100 mg Oral Tablet Sustained Release - take 1 tablet by ORAL route 2 times per day As needed; 20 tablet. - Medication Reconciliation Form, Thank You Letter, Antibiotic Education, Prescription Opioid Use form. - Follow up: Fabian Hernández MD; When: 2 - 3 days; Reason: Recheck today's complaints, Continuance of care, Re-evaluation by your physician. Signatures: Dispatcher [employer] Lazaro Mcnulty PA PA jmm Munoz, Edgar, RN Adolfo Noble MD MD rn Brown, Zipporah, RN RN zb Corrections: (The following items were deleted from the chart) 00:15 10/31 23:45 10/31/2020 23:45 Discharged to Home. Impression: Other sprain of right em shoulder joint. Condition is Stable. Forms are Medication Reconciliation Form, Thank You Letter, Antibiotic Education, Prescription Opioid Use. Follow up: Fabian Hernández; When: 2 - 3 days; Reason: Recheck today's complaints, Continuance of care, Re-evaluation by your physician. thien
--- NOTE | 2020-10-31 23:46 | ER ---
Nurse's Notes [facility] Name: Emani Roy Age: 50 yrs Sex: Female : 1970 Arrival Date: 10/31/2020 Time: 21:36 Bed 15 Private MD: Diagnosis: Other sprain of right shoulder joint Presentation: 10/31 21:53 Chief complaint: Patient states: slipped on ice about 30-60 minutes ago, reports em hitting RIGHT elbow but pain is in the RIGHT shoulder, denies any other injuries or hitting head. Coronavirus screen: Client denies travel out of the [place] in the last 14 days. Ebola Screen: Patient negative for fever greater than or equal to 101.5 degrees Fahrenheit, and additional compatible Ebola Virus Disease symptoms Patient denies exposure to infectious person. Patient denies travel to an Ebola-affected area in the 21 days before illness onset. No symptoms or risks identified at this time. Initial Sepsis Screen: Does the patient meet any 2 criteria? HR > 90 bpm. No. Patient's initial sepsis screen is negative. Does the patient have a suspected source of infection? No. Patient's initial sepsis screen is negative. Risk Assessment: Do you want to hurt yourself or someone else? Patient reports no desire to harm self or others. Onset of symptoms was October 31, 2020. 21:53 Method Of Arrival: Ambulatory em 21:53 Acuity: ARIANNE 4 em Triage Assessment: 22:25 General: Appears in no apparent distress. uncomfortable. Injury Description: FALL. zb Historical: - Allergies: 21:55 No Known Allergies; em - PMHx: 21:55 Gout; Lupus; em - PSHx: 21:55 right hip replacement; em - Immunization history:: Adult Immunizations up to date. - Social history:: Smoking status: Patient denies any tobacco usage or history of. Screenin:25 Abuse screen: Denies threats or abuse. Denies injuries from another. Nutritional zb screening: No deficits noted. Tuberculosis screening: No symptoms or risk factors identified. Fall Risk Fall in past 12 months (25 points). No secondary diagnosis (0 pts). No IV (0 pts). Ambulatory Aid- Furniture (30 pts.). Gait- Normal/Bed Rest/Wheelchair (0 pts) Mental Status- Oriented to own ability (0 pts). Total Lopez Fall Scale indicates No Risk (0-24 pts). Assessment: 22:23 General: Appears in no apparent distress. uncomfortable, Behavior is calm, cooperative, zb appropriate for age. Pain: Complains of pain in anterior aspect of right shoulder and posterior aspect of right shoulder Pain does not radiate. Pain currently is 8 out of 10 on a pain scale. at worst was 10 out of 10 on a pain scale. Quality of pain is described as aching, sharp, tender. Neuro: Level of Consciousness is awake, alert, obeys commands. Cardiovascular: Capillary refill < 3 seconds in bilateral fingers Patient's skin is warm and dry. Respiratory: Airway is patent Trachea Respiratory effort is even, unlabored, Respiratory pattern is regular, symmetrical. GI: Abdomen is round non-distended, obese. : No signs and/or symptoms were reported regarding the genitourinary system. EENT: No signs and/or symptoms were reported regarding the EENT system. Derm: Skin is intact, is healthy with good turgor, Skin is dry, Skin is normal, Skin temperature is warm. Musculoskeletal: Circulation, motion, and sensation intact. Range of motion: limited in right shoulder. 22:26 Reassessment: x-ray at bedside. zb 23:07 Reassessment: Patient appears in no apparent distress at this time. Patient and/or zb family updated on plan of care and expected duration. Pain level reassessed. Patient is alert, oriented x 3, equal unlabored respirations, skin warm/dry/pink. pain had decreased to 5/10. Vital Signs: 21:53 BP 151 / 101; Pulse 106; Resp 18; Temp 97.9(O); Pulse Ox 98% on R/A; Weight 134.72 kg; em Height 5 ft. 6 in. (167.64 cm); Pain 8/10; 23:11 BP 124 / 82; Pulse 98; Resp 16; Pulse Ox 98% on R/A; zb 21:53 Body Mass Index 47.94 (134.72 kg, 167.64 cm) em ED Course: 21:36 Patient arrived in ED. ag3 21:55 Triage completed. em 21:55 Arm band placed on. em 21:56 Lazaro Torrez PA is PHCP. jmm 21:56 Adolfo Frias MD is Attending Physician. [facility] 21:57 Rosetta Schulz, RN is Primary Nurse. zb 22:25 Patient has correct armband on for positive identification. Pulse ox on. NIBP on. Door zb closed. Noise minimized. Warm blanket given. 22:33 Shoulder Right (2 View) XRAY In Process Unspecified. EDMS 23:45 Fabian Hernández MD is Referral Physician. [facility] 11/01 00:13 No provider procedures requiring assistance completed. Patient did not have IV access em during this emergency room visit. 00:14 Sling applied to right arm. em Administered Medications: 10/31 22:15 Drug: [place] 10 mg-325 mg 1 tabs Route: PO; zb 23:08 Follow up: Response: No adverse reaction; Pain is decreased; RASS: Alert and Calm (0) zb Outcome: 23:45 Discharge ordered by MD. [facility] 11/01 00:13 Discharged to home ambulatory. em Condition: good Discharge instructions given to patient, Instructed on discharge instructions, follow up and referral plans. medication usage, Demonstrated understanding of instructions, follow-up care, medications, Prescriptions given X 1. 00:15 Patient left the ED. em Signatures: Dispatcher [employer] EDMS Lazaro Torrez PA PA Dennys Atkins, RN RN Kendra Whittaker 3 Rosetta Schulz, RAISA RN zb
[2020-11-01 00:31] VITALS: TEMP 97.9; O2SAT 98
[2020-11-01 00:32] VITALS: BP 124/82
--- NOTE | 2020-11-01 14:40 | RAD REPORT ---
EXAM DESCRIPTION: RAD - Shoulder Right 2 View - 11/01/2020 7:55 am CLINICAL HISTORY: Fall, injury Shoulder Right 2 View COMPARISON: None. TECHNIQUE: XR SHOULDER 2 OR MORE VIEWS 10/31/2020 10:03 PM REEL FILM INSPECTOR FINDINGS: There is no fracture. There is mild to moderate narrowing of the right acromioclavicular j oint. Soft tissues are unremarkable. IMPRESSION: No acute osseous findings. Electronically signed by: Gregory Lee MD 10/31/2020 11:06 PM REEL FILM INSPECTOR Due to temporary technical issues with the PACS/Fluency reporting system, reports are being signed by the in house radiologist without review as a courtesy to ensure prompt reporting. The interpreting r adiologist is fully responsible for the content of the report.
== END 2020-11-01 00:15 | disposition home or self-care (01) ==
LOC: ER 21:32
DX: S43.491A Other sprain of right shoulder joint, initial encounter (principal); W00.0XXA Fall on same level due to ice and snow, initial encounter; Y93.9 Activity, unspecified; Y92.9 Unspecified place or not applicable
CPT/HCPCS: 99284

== ENCOUNTER 2020-12-03 15:36 | Emergency (ER) | payer BC ==
--- OUTSIDE RECORDS SUMMARY | 2020-12-03 15:39 | XMS REPORT | Continuity of Care Document ---
:1970 Author Organization [facility] t Address [address] [place] [address] Care Team Providers Name Role Phone Kevin ARAYA Attending Clinician Alex ARAYA, Yvonne Attending Clinician Tahira Miguel MD Admitting Clinician Payers Payer Name Policy Type Policy Number Effective Date Expiration Date S ource Problems Condition Condition Condition Status Onset Resolution Last Treating Co mments Source Name Details Category Date Date Treatment Clinician Date Primary Primary Problem Active [facility] oste[facility] osteoarthr [facility]ie k[facility] - [facility] left hip left [facility] Primary Primary Problem Active [facility] osteoarthr osteoarthr [facility]ie kes - [facility] right hip right hip l [facility] Nontraumat Nontraumat Diagnosis Active [facility] ic tear of ic tear of Kassie kes - left left [facility] rotator rotator l cuff, cuff, Outpati unspecifie unspecifie en t d tear d tear Clinics extent extent Impingemen Impingemen Diagnosis Active [facility] - syndrome, syndrome, Abhinav celestina shoulder, shoulder, l left left Outpati ent Clinics Bicipital Bicipital Diagnosis Active [facility] tendinitis tendinitis Kassie kes - of left of left [facility] shoulder shoulder l [facility] Pain in Pain in Diagnosis [facility] - [facility] left [facility] shoulder shoulder l [facility] Allergies, Adverse Reactions, Alerts Allergy Allergy Status Severity Reaction(s) Onset Inactive Treating Comm ents Source Name Type Date Date Clinician No Known DA Active U 2017-09 [facility] Medications Ordered Filled Start Stop Current Ordering Indication Dosage Frequency Signature Comments Components Source Medication Medication Date Date Medication? Clinician (SIG) Name Name Becky Dohertyjoe Yes Chuy [address] [facility] 2-15 [facility] - 00:00: morning [facility] 00 with food l [facility] Hydroxychlo Hydroxychlo Yes Chuy not [facility] roquine roquine [facility] defined [facility] - Sulfate Sulfate [facility] Ibuprofen Ibuprofen Yes Chuy [address] [facility] with food [facility] - or milk as [facility] needed l [facility]pat[facility] ent Clinics Losartan Losartan Yes Chuy not [facility] Potassium Potassium [facility] defined [facility]ie k[facility] - [facility] Indomethaci Indomethaci Yes Chuy not [facility] n n [facility] defined [facility] Omeprazole Omeprazole Yes Chuy not [facility] Allopurinol Allopurinol Yes Chuy not [facility] Colcrys Colcrys Yes Chuy not [facility] Procedures This patient has no known procedures. Encounters Start End Encounter Admission Attending Care Care Encounter Source Date/Time Date/Time Type Type Clinicians Facility Department ID 2020-10-14 2020-10-15 Emergency Nader Brown [id number] 12:51:00 17:51:00 Bello Johnson [id number] [facility] [id number] 2019-12-24 2019-12-24 [facility] [id number] [facility] 10:00:00 10:[facility]00 [facility] 2019-08-10 2019-08-10 [facility] [id number] [facility] [address] 15:43:00 15:43:00 [facility] 2019-08-10 2019-08-10 [facility] [id number] [address] 11:51:00 11:51:00 [facility] 2019-08-02 2019-08-02 [facility] [id number] 11:05:00 11:05:00 [facility] 2019-04-01 2019-04-01 [facility] [id number] [address] 12:44:00 12:44:00 [facility] 2019-03-29 2019-03-29 [facility] [id number] 10:00:00 10:00:00 t [facility] Results Test Description Test Time Test Comments Results Result [facility] Comments - XR PELVIS 09/162019-06-04 Patient Name: VIEWS 09:23:00 ISABELLA TENORIO Unit No: [id number] EXAMS: CPT CODE: [id number] XR PELVIS 09/16 VIEWS 35741 AP view the pelvis COMMENT: COMPARISON: No prior exams available. Completed total right hip arthroplasty. Prosthesis appears to be in good position. at 0923 Reported and signed by: Corrie Spears MD CC: Alejo Gregg; Ochoa Barrera MD Technologist: BELLO RIVERA (RT.R) Transcribed D/ (0923) t.SDR.[facility] NAME: ISABELLA TENORIO [address] [facility] PHYS: Alejo Ramirez : 1970 AGE: 49 SEX: F [place], [place] [address] LOC: Y.315 A PHONE #: [phone] EXAM DATE: 06/01/2019 STATUS: DIS IN FAX #: [phone] RAD #: D/C DT 06/02/2019 PAGE 1 Signed Report Patient Name: ISABELLA TENORIO Unit No: [id number] EXAMS: CPT CODE: [id number] XR PELVIS 1/2 VIEWS 12273 <Continued> Orig Print D/T: S: 06/04/2019 (925) [facility] NAME: ISABELLA TENORIO [address] [facility] PHYS: Alejo Ramirez : 1970 AGE: 49 SEX: F [place] [address] LOC: Y.315 A PHONE #: [phone] EXAM DATE: 06/01/2019 STATUS: DIS IN FAX #: [phone] RAD #: D/C DT 06/02/2019 PAGE 2 Signed Report BASIC METABOLIC PANEL 2019-06-02 07:14:00 Test Item Value Reference Range Interpretation Comme nts SODIUM (test code = NA) 141 mmol/L 136-145 N POTASSIUM (test code = K) 4.6 mmol/L 3.5-5.1 N CHLORIDE (test code = CL) 104.0 mmol/L 98-107 N CARBON DIOXIDE (test code = 25.3 mmol/L 21-32 N CO2) GLUCOSE (test code = GLU) 89 mg/dL 70-110 N BLOOD UREA NITROGEN (test code 14 mg/dL 7-18 N = BUN) GLOMERULAR FILTRATION RATE 84.3 >60 U nit of measure: (test code = GFR) mL/min/1.7 3 [id number] Range:Healthy A dults >90 mL/min/1.73 m2 For Chronic Kidney Disease: Stage II Mi ld Decrease in GFR 60-9 0 Stage III Moderate Decrease in GFR 30-59 Stage IV Severe Decrease in GFR 15-29 Stage V Kidney Failure <15 CREATININE (test code = CREAT) 0.86 mg/dL 0.55-1.30 N CALCIUM (test code = CA) 8.8 mg/dL 8.2-10.1 N HGB [id number] 06:21:00 Test Item Value Reference Range Interpretation Comments HEMOGLOBIN (test code = HGB) 10.2 g/dL 12-16 L HEMATOCRIT (test code = HCT) 31.5 % 37-47 L - XR PELVIS 1/2 [id number] 12:04:00 Patient Name: ISABELLA TENORIO Unit No: [id number] EXAMS: CPT CODE: [id number] XR PELVIS 1/2 VIEWS 12170 INTRAOPERATIVE LEG LENGTH FILM COMMENT: COMPARISON: Noprior exams available. In progress right hip replacement is noted. at 1204 Reported and signed by: Jw Castro MD CC: Alejo Gregg; Ochoa Barrera MD Technologist: BELLO RIVERA (RT.R) Transcribed D/ (0279) t.BENTLEYR.[facility] NAME: ISABELLA TENORIO [address] [facility] PHYS: Alejo Ramirez : 1970 AGE: 49 SEX: F [place] [address] LOC: Y.998 7 PHONE #: [phone] EXAM DATE: 06/01/2019 STATUS: ADM IN FAX #: [phone] RAD #: D/C DT PAGE 1 Signed Report Patient Name: ISABELLA TENORIO Unit No: [id number] EXAMS: CPT CODE: [id number] XR PELVIS 1/2 VIEWS 82068 <Continued> Orig Print D/T: S: 06/01/2019 (6790) [facility]: [facility] [address] [facility] PHYS: MANI GreggAlejo Krishnan : 1970 AGE: 49 SEX: F [place] [address] LOC: Y.998 7 PHONE #: [phone] EXAM DATE: 06/01/2019 STATUS: ADM IN FAX #: [phone] RAD #: D/C DT PAGE 2 Signed Report- XR PELVIS 1/2 [id number] 12:03:00 Patient Name: ISABELLA TENORIO Unit No: [id number] EXAMS: CPT CODE: [id number] XR PELVIS 1/2 VIEWS 33641 INTRAOPERATIVE LEG LENGTH FILM COMMENT: COMPARISON: Noprior exams available. In progress right hip replacement is noted. at 1203 Reported and signed by: Jw Castro MD CC: Alejo Gregg; Ochoa Barrera MD Technologist: BELLO RIVERA (RT.R) Transcribed D/ (3290) t[facility]YR[facility] NAME: ISABELLA TENORIO [address] [facility] PHYS: Alejo Ramirez : 1970 AGE: 49 SEX: F [place] [address] LOC: Y.998 7 PHONE #: [phone] EXAM DATE: 06/01/2019 STATUS: ADM IN FAX #: [phone] RAD #: D/C DT PAGE 1 Signed Report Patient Name: ISABELLA TENORIO Unit No: [id number] EXAMS: CPT CODE: [id number] XR PELVIS 1/2 VIEWS 03900 <Continued> Orig Print D/T: S: 06/01/2019 (1206) [facility]ENORIO [address] [facility] PHYS: Alejo Ramirez : 1970 AGE: 49 SEX: F [place] [address] LOC: Y.998 7 PHONE #: [phone] EXAM DATE: 06/01/2019 STATUS: ADM IN FAX #: [phone] RAD #: D/C DT PAGE 2 Signed ReportAB HIV 19:41:00 Test Item Value Reference Range Interpretation Comments AB HIV 1 (test code NONREACTIVE NONREACTIVE DONE AT: [facility] = HIV1AB) [place] [id number] [place], [place] [address] by [facility] 4th Gen HIV Ag/Ab C ombo Screen AB HIV 1 19:40:00 Test Item Value Reference Range Interpretation Comments AB HIV 1 2 (test NONREACTIVE NONREACTIVE Done by S [facility] code = [id number]) 4th Gen HIV Ag/Ab Combo Screen COMPREHENSIVE METABOLIC [id number] 12:48:00 Test Item Value Reference Range Interpretation Comments SODIUM (test code = 143 mmol/L 136-145 N NA) POTASSIUM (test code = 4.1 mmol/L 3.5-5.1 N K) CHLORIDE (test code = 107.0 mmol/L 98-107 N CL) CARBON DIOXIDE (test 26.9 mmol/L 21-32 N code = CO2) GLUCOSE (test code = 74 mg/dL 70-110 N GLU) BLOOD UREA NITROGEN 15 mg/dL 7-18 N (test code = BUN) GLOMERULAR FILTRATION 101.9 >60 Unit o f measure: RATE (test code = GFR) mL/mi n/1.73 [id number] Range:Healthy Adults >90 mL/min/1.73 m2 For Chronic Kidney Disease: St age II Mild Decrease in GFR 60-90 St age III Moderate Decrease in GFR 30-59 Stage IV Severe Decre ase in GFR 15- 29 Stage V Kidney Failure <15 CREATININE (test code 0.73 mg/dL 0.55-1.30 N = CREAT) TOTAL PROTEIN (test 7.5 g/dL 6.4-8.2 N code = PROT) ALBUMIN (test code = 3.6 g/dL 3.4-5.0 N ALB) GLOBULIN (test code = 3.9 g/dL 2.2-4.2 N GLOB) ALBUMIN/GLOBULIN RATIO 0.9 0.7-2.0 N (test code = A/G) CALCIUM (test code = 9.1 mg/dL 8.2-10.1 N CA) BILIRUBIN TOTAL (test 0.42 mg/dL 0.2-1.00 N code = BILT) SGOT/AST (test code = 32.0 U/L 15-37 N AST) SGPT/ALT (test code = 30.0 U/L 12-78 N Please note new ALT) normal range. ALKALINE PHOSPHATASE 164 U/L 46-116 H TOTAL (test code = ALKP) URINALYSIS [id number] 12:07:00 Test Item Value Reference Range Interpretation Comments UA COLOR (test code = COLU) YELLOW YELLOW UA APPEARANCE (test code = SL CLOUDY CLEAR A APPU) UA GLUCOSE DIPSTICK (test code NEGATIVE NEGATIVE = DGLUU) UA BILIRUBIN DIPSTICK (test NEGATIVE NEGATIVE code = BILU) UA KETONE DIPSTICK (test code NEGATIVE mg/dL NEG = KETU) UA SPECIFIC GRAVITY (test code 1.015 1.003-1.035 = SGU) UA BLOOD DIPSTICK (test code = 2+ NEGATIVE A CHUY) UA PH DIPSTICK (test code = 5.5 >6.5 OR[place]O) UA PROTEIN DIPSTICK (test code NEGATIVE mg/dL NEG = PROU) UA UROBILINIOGEN DIPSTICK 0.2 mg/dL NORM (test code = URO) UA NITRITE DIPSTICK (test code NEGATIVE NEG = ASTRID) UA LEUKOCYTE ESTERASE DIPSTICK NEGATIVE NEGATIVE (test code = LEUU) UA WBC (test code = WBCU) <5 /HPF 0-2 UA RBC (test code = RBCU) 2-5 /HPF 0-2 A UA EPITHELIAL CELLS (test code FEW /HPF 0-2 = EPIU) UA BACTERIA (test code = BACU) FEW /HPF NONE UA HYALINE CAST (test code = RARE /LPF NONE SEEN HYALU) UA MUCUS (test code = MUCU) 2+ /LPF NONE SEEN PROTHROMBIN [id number] 12:05:00 Test Item Value Reference Range Interpretation Comments PROTHROMBIN TIME 12.2 secs 10.1-12.5 N PATIENT (test code = PTP) INTERNATIONAL NORMAL 1.08 <2.0 RECOMME NDED THERAPEUTIC RATIO (test code = RANGE FOR ORAL INR) ANTICOAGULANTTR EATMENT: CONDI TION INRProphylaxis of venous thrombos is in 2.0 - 3.0 high-risk medic al or surgical patientsTreatme nt of venous thrombos is 2.0 - 3.0Prevention o f embolism 2.0 - 3.0Prevention o f recurrent embol ism, or 3.0 - 4. 5 patients with mechanical pros thetic intravascular v garcia IS PATIENT ON ANTICOAGULANTS ? NDas Lab been notified if Patient is on Heparin Drip? NOTHROMBOPLASTIN TIME [id number] 12:05:00 Test Item Value Reference Range Interpretation Comments PTT ACTIVATED (test code = APTT) 31.7 secs 24.9-37.0 N IS PATIENT ON ANTICOAGULANTS ? NDas Lab been notified if Patient is on Heparin Drip? NOCBC W/AUTO [id number] 11:37:00 Test Item Value Reference Range Interpretation Comments WHITE BLOOD CELL (test code = WBC) 5.1 K/mm3 5.8-11.0 L RED BLOOD CELL (test code = RBC) 4.67 M/mm3 4.2-5.4 N HEMOGLOBIN (test code = HGB) 12.4 g/dL 12-16 N HEMATOCRIT (test code = HCT) 38.7 % 37-47 N MEAN CELL VOLUME (test code = MCV) 83 fL 80-98 N MEAN CELL HGB (test code = MCH) 26.6 pg 27-34 L MEAN CELL HGB CONCENTRATION (test 32.0 g/dL 30.8-34.1 N code = MCHC) RED CELL DISTRIBUTION WIDTH (test 15.0 % 11-16 N code = RDW) PLT (test code = PLT) 183 K/mm3 130-400 N MEAN PLATELET VOLUME (test code = 14.4 fL 8.9-12.1 H MPV) NEUTROPHIL % (test code = NT%) 55.8 % 45-70 N LYMPHOCYTE % (test code = LY%) 33.7 % 20-40 N MONOCYTE % (test code = MO%) 9.3 % 3-10 N EOSINOPHIL % (test code = EO%) 0.2 % 1-5 L BASOPHIL % (test code = BA%) 0.8 % 0.0-1.1 N NEUTROPHIL # (test code = NT#) 2.82 K/mm3 2.00-7.50 N LYMPHOCYTE # (test code = LY#) 1.70 K/mm3 1.50-4.00 N MONOCYTE # (test code = MO#) 0.47 K/mm3 0.2-0.8 N EOSINOPHIL # (test code = EO#) 0.01 K/mm3 0.04-0.4 L BASOPHIL # (test code = BA#) 0.04 K/mm3 0.02-0.10 N MANUAL DIFF REQUIRED (test code = NO MANUAL DIFF MDIFF) NUCLEATED RED BLOOD CELL (test 0 % 0-0 N code = NRBC)
[2020-12-03 17:05] LABS: Absolute Lymphocytes (CBC) 2.5 K/uL (0.7-4.9); Basophils % 1.2 % (0-1.3); Hematocrit 38.1 % (36.0-45.0); Lymphocytes % 21.4 % (15.3-44.8); MPV 11.8 fL (7.6-11.3); RBC Red Blood Cell Count 4.56 M/uL (3.86-4.86)
[2020-12-03 17:08] LABS: Protime INR 1.13
[2020-12-03 17:19] LABS: Potassium 3.6 mmol/L (3.5-5.1)
--- NOTE | 2020-12-03 17:29 | EDPHYS ---
Physician Documentation [facility] Name: Emani Roy Age: 50 yrs Sex: Female : 1970 Arrival Date: 12/03/2020 Time: 15:38 Bed 24 Private MD: ED Physician Mundo Meadows HPI: 12/03 16:10 This 50 yrs old Black Female presents to ER via Ambulatory with complaints of Fever, cp Pain All Over. 16:10 The patient reports fever, not measured (subjective). cp 16:10 Onset: The symptoms/episode began/occurred last night. cp 16:10 Associated signs and symptoms: Pertinent negatives: abdominal pain, chest pain, cp diarrhea, headache, vomiting. Patient reports concern for abscess and/or cellulitis of back of right upper thigh in area of panty line. 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 - Social history:: Smoking status: Patient denies any tobacco usage or history of. ROS: 16:15 Eyes: Negative for injury, pain, redness, and discharge. cp 16:15 Constitutional: Positive for body aches, generalized pain, Negative for fever. 16:15 ENT: Negative for drainage from ear(s), ear pain, sore throat, difficulty swallowing, difficulty handling secretions. 16:15 Cardiovascular: Negative for chest pain, palpitations. 16:15 Respiratory: Positive for shortness of breath, on exertion. Negative for cough, wheezing. 16:15 Abdomen/GI: Negative for abdominal pain, nausea, vomiting, and diarrhea, black/tarry stool, rectal bleeding. 16:15 Skin: Positive for cellulitis, of the right gluteal fold. 16:15 Neuro: Negative for altered mental status, dizziness, headache, numbness, syncope, weakness. 16:15 All other systems are negative. Exam: 16:20 Head/Face: Normocephalic, atraumatic. cp 16:20 Constitutional: The patient appears in no acute distress, alert, awake, non-diaphoretic, non-toxic, well developed, well nourished, obese. 16:20 Eyes: Periorbital structures: appear normal, Conjunctiva: normal, no exudate, no cp injection, Sclera: no appreciated abnormality, Lids and lashes: appear normal, bilaterally. 16:20 ENT: External ear(s): are unremarkable, Nose: is normal, Mouth: Lips: moist, Oral mucosa: pink and intact, moist, Posterior pharynx: Airway: no evidence of obstruction, patent. 16:20 Neck: ROM/movement: is normal, is supple, without pain, no range of motions limitations, no meningismus, no nuchal rigidity. 16:20 Chest/axilla: Inspection: normal. 16:20 Cardiovascular: Rate: normal, Edema: is not appreciated. 16:20 Respiratory: the patient does not display signs of respiratory distress, Respirations: normal, no use of accessory muscles, no retractions, labored breathing, is not present. 16:20 Abdomen/GI: Exam negative for discomfort, distension, guarding, Inspection: abdomen appears normal. 16:20 Back: CVA tenderness, is absent. 16:20 Skin: abscess, not appreciated, cellulitis, that is mild, on the right gluteal fold. 16:20 Neuro: Orientation: to person, place \T\ time. Mentation: is normal, Motor: moves all fours, strength is normal, Gait: is steady, at a normal pace, without difficulty. Vital Signs: 15:52 BP 122 / 89; Pulse 97; Resp 16 S; Temp 97.9(TE); Pulse Ox 100% on R/A; Weight 136.08 kg ca1 (R); Height 5 ft. 6 in. (167.64 cm) (R); Pain 6/10; 17:44 BP 127 / 79; Pulse 86; Resp 16; Pulse Ox 98% on R/A; zb 15:52 Body Mass Index 48.42 (136.08 kg, 167.64 cm) ca1 MDM: 15:57 Patient medically screened. cp 17:28 Data reviewed: vital signs, nurses notes, lab test result(s). cp 17:28 Differential diagnosis: UTI, cellulitis, abscess, sepsis. Counseling: I had a detailed cp discussion with the patient and/or guardian regarding: the historical points, exam findings, and any diagnostic results supporting the discharge/admit diagnosis, lab results, to return to the emergency department if symptoms worsen or persist or if there are any questions or concerns that arise at home. Response to treatment: the patient's symptoms have markedly improved after treatment, and as a result, I will discharge patient. 17:30 ED course: VSS. Pain improved. Labs reviewed and patient appears non-toxic. Will cp discharge to home for continued monitoring. 12/03 16:25 Order name: Urine Microscopic Only; Complete Time: 07:14 cp 12/03 16:25 Order name: CBC with Diff; Complete Time: 17:13 cp 12/03 17:13 Interpretation: Normal except: WBC 11.90; MCV 83.6; RDW 16.6; MPV 11.8. cp 12/03 16:25 Order name: BMP; Complete Time: 17:21 cp 12/03 16:25 Order name: PT-INR; Complete Time: 17:13 cp 12/03 16:25 Order name: Procalcitonin; Complete Time: 07:14 cp 12/03 17:35 Order name: Urine Dipstick--Ancillary (enter results); Complete Time: 07:14 em1 12/03 16:25 Order name: Urine Dipstick-Ancillary (obtain specimen); Complete Time: 16:59 cp 12/03 16:25 Order name: IV; Complete Time: 16:59 cp 12/03 17:56 Order name: Urine Culture z 12/03 17:57 Order name: Urine Culture EDMS Administered Medications: 17:41 Drug: Clindamycin 900 mg Route: IVPB; Infused Over: 30 mins; Site: left antecubital; zb 18:10 Follow up: Response: No adverse reaction; IV Status: Completed infusion; IV Intake: zb 100ml 17:43 Drug: fentaNYL (PF) 25 mcg {Note: rass 0.} Route: IVP; Site: left antecubital; zb 17:50 Follow up: Response: No adverse reaction; Marked relief of symptoms; RASS: Alert and zb Calm (0) 17:43 Drug: Bactrim (160 mg-800 mg (DS) 2 tabs Route: PO; zb 17:50 Follow up: Response: Medication administered at discharge. zb Disposition: 12/03/20 17:29 Discharged to Home. Impression: Urinary tract infection, site not specified, Cellulitis of right lower limb. - Condition is Stable. - Discharge Instructions: Cellulitis, Adult, Urinary Tract Infection, Adult. - Prescriptions for Clindamycin HCl 300 mg Oral Capsule - take 1 capsule by ORAL route every 6 hours for 10 days; 40 capsule. Tramadol 50 mg Oral Tablet - take 1 tablet by ORAL route every 8 hours as needed; 12 tablet. Bactrim DS 800- 160 mg Oral Tablet - take 1 tablet by ORAL route every 12 hours for 10 days; 20 tablet. - Medication Reconciliation Form, Thank You Letter, Antibiotic Education, Prescription Opioid Use form. - Follow up: Private Physician; When: 2 - 3 days; Reason: Recheck today's complaints. - Problem is new. - Symptoms have improved. Addendum: 12/04/2020 19:29 Co-signature as Attending Physician, Mundo Meadows MD. m a2 Signatures: Dispatcher [employer] EDMS Jesus Strauss PA PA cp Alzahri, Mohammad, MD MD ma2 Lisa Michel RN RN Rosetta Love RN RN zb Corrections: (The following items were deleted from the chart) 12/03 18:20 17:29 12/03/2020 17:29 Discharged to Home. Impression: Urinary tract infection, site ca1 not specified; Cellulitis of right lower limb. Condition is Stable. Forms are Medication Reconciliation Form, Thank You Letter, Antibiotic Education, Prescription Opioid Use. Follow up: Private Physician; When: 2 - 3 days; Reason: Recheck today's complaints. Problem is new. Symptoms have improved. 18:26 18:20 12/03/2020 17:29 Discharged to Home. Impression: Urinary tract infection, site zb not specified; Cellulitis of right lower limb. Condition is Stable. Discharge Instructions: Cellulitis, Adult, Urinary Tract Infection, Adult. Prescriptions for Clindamycin HCl 300 mg Oral Capsule - take 1 capsule by ORAL route every 6 hours for 10 days; 40 capsule, Tramadol 50 mg Oral Tablet - take 1 tablet by ORAL route every 8 hours as needed; 12 tablet, Bactrim DS 800-160 mg Oral Tablet - take 1 tablet by ORAL route every 12 hours for 10 days; 20 tablet. and Forms are Medication Reconciliation Form, Thank You Letter, Antibiotic Education, Prescription Opioid Use. Follow up: Private Physician; When: 2 - 3 days; Reason: Recheck today's complaints. Problem is new. Symptoms have improved. ca1 12/04 07:04 06:58 Constitutional: Positive for body aches, generalized pain, Negative for fever, cp cp 07:04 06:58 Eyes: Negative for injury, pain, redness, and discharge, cp cp 07:04 06:58 Cardiovascular: Negative for chest pain, palpitations, cp cp 07:04 06:58 Respiratory: Positive for shortness of breath, on exertion. Negative for cough, cp wheezing, cp 07:04 06:58 Abdomen/GI: Negative for abdominal pain, nausea, vomiting, and diarrhea, cp black/tarry stool, rectal bleeding, cp 07:04 06:58 ENT: Negative for drainage from ear(s), ear pain, sore throat, difficulty cp swallowing, difficulty handling secretions, cp 07:04 06:58 Neuro: Negative for altered mental status, dizziness, headache, numbness, cp syncope, weakness, cp 07:04 06:58 Skin: Positive for cellulitis, of the right gluteal fold, cp cp 07:04 06:58 All other systems are negative, cp cp
--- NOTE | 2020-12-03 17:29 | ER ---
Nurse's Notes [facility] Name: Emani Roy Age: 50 yrs Sex: Female : 1970 Arrival Date: 12/03/2020 Time: 15:38 Bed 24 Private MD: Diagnosis: Urinary tract infection, site not specified;Cellulitis of right lower limb Presentation: 12/03 15:52 Chief complaint: Patient states: Abscess on R buttocks x 2 days. Reports fever last ca1 night and pain all over. Coronavirus screen: Client denies travel out of the [place] in the last 14 days. fever, Client presents with at least one sign or symptom that may indicate coronavirus-19. Standard/surgical mask placed on the client. Provider contacted for isolation considerations. Client reports previous positive COVID test result. Date of collection: October 06, 2020. Ebola Screen: Patient negative for fever greater than or equal to 101.5 degrees Fahrenheit, and additional compatible Ebola Virus Disease symptoms Patient denies exposure to infectious person. Patient denies travel to an Ebola-affected area in the 21 days before illness onset. No symptoms or risks identified at this time. Initial Sepsis Screen: Does the patient meet any 2 criteria? No. Patient's initial sepsis screen is negative. Does the patient have a suspected source of infection? No. Patient's initial sepsis screen is negative. Risk Assessment: Do you want to hurt yourself or someone else? Patient reports no desire to harm self or others. Onset of symptoms was December 03, 2020. 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 - Social history:: Smoking status: Patient denies any tobacco usage or history of. Screenin:02 Abuse screen: Denies threats or abuse. Denies injuries from another. Nutritional zb screening: No deficits noted. Tuberculosis screening: No symptoms or risk factors identified. Fall Risk None identified. Assessment: 16:00 General: Appears in no apparent distress. uncomfortable, Behavior is calm, cooperative, zb appropriate for age, Reports fever for 1-2 days, feeling ill for 1-2 days, fatigue for 1-2 days. Pain: Complains of pain in generalized body aches and right lower buttocks pain. Pain does not radiate. Pain began 2-3 days ago. Neuro: Level of Consciousness is awake, alert, obeys commands, Oriented to person, place. Cardiovascular: Patient's skin is warm and dry. Respiratory: Airway is patent Respiratory effort is even, unlabored, Respiratory pattern is regular, symmetrical. GI: Abdomen is obese. : No signs and/or symptoms were reported regarding the genitourinary system. Derm: Skin is intact, is healthy with good turgor, Skin is dry, Skin is normal, Abscess located on right gluteal fold is quarter sized. Musculoskeletal: Range of motion: intact in all extremities. 17:00 Reassessment: Patient appears in no apparent distress at this time. Patient and/or zb family updated on plan of care and expected duration. Pain level reassessed. Patient is alert, oriented x 3, equal unlabored respirations, skin warm/dry/pink. 17:44 Reassessment: d/c pending IV abx. zb Vital Signs: 15:52 BP 122 / 89; Pulse 97; Resp 16 S; Temp 97.9(TE); Pulse Ox 100% on R/A; Weight 136.08 kg ca1 (R); Height 5 ft. 6 in. (167.64 cm) (R); Pain 6/10; 17:44 BP 127 / 79; Pulse 86; Resp 16; Pulse Ox 98% on R/A; zb 15:52 Body Mass Index 48.42 (136.08 kg, 167.64 cm) ca1 ED Course: 15:38 Patient arrived in ED. as 15:52 eJsus Strauss PA is PHCP. cp 15:52 Mundo Meadows MD is Attending Physician. cp 15:54 Triage completed. ca1 15:55 Arm band placed on right wrist. ca1 16:06 Rosetta Schulz RN is Primary Nurse. zb 17:02 Patient has correct armband on for positive identification. Placed in gown. Bed in low zb position. Call light in reach. Side rails up X 1. Pulse ox on. NIBP on. Door closed. Noise minimized. Warm blanket given. 17:02 Inserted saline lock: 20 gauge in left antecubital area, using aseptic technique. Blood zb collected. 18:20 IV discontinued, intact, bleeding controlled, No redness/swelling at site. Pressure zb dressing applied. 18:26 No provider procedures requiring assistance completed. zb Administered Medications: 17:41 Drug: Clindamycin 900 mg Route: IVPB; Infused Over: 30 mins; Site: left antecubital; zb 18:10 Follow up: Response: No adverse reaction; IV Status: Completed infusion; IV Intake: zb 100ml 17:43 Drug: fentaNYL (PF) 25 mcg {Note: rass 0.} Route: IVP; Site: left antecubital; zb 17:50 Follow up: Response: No adverse reaction; Marked relief of symptoms; RASS: Alert and zb Calm (0) 17:43 Drug: Bactrim (160 mg-800 mg (DS) 2 tabs Route: PO; zb 17:50 Follow up: Response: Medication administered at discharge. zb Intake: 18:10 IV: 100ml; Total: 100ml. zb Outcome: 17:29 Discharge ordered by MD. cp 18:26 Patient left the ED. zb 18:26 Discharged to home ambulatory. zb 18:26 Condition: stable 18:26 Discharge instructions given to patient, Instructed on discharge instructions, follow up and referral plans. medication usage, Demonstrated understanding of instructions, follow-up care, medications, Prescriptions given X 3. Signatures: Cecilia Higgins Corey, PA PA cp Acob, Cheryl, RN RN ca1 Rosetta Schulz RN RN zb Corrections: (The following items were deleted from the chart) 17:43 17:43 fentaNYL (PF) 25 mcg IVP in left antecubital zb zb 18:21 18:20 Patient left the ED. ca1 ca1
[2020-12-03] MEDS ORDERED: CLINDAMYCIN 900MG/D5W 900 MG/50 ML IVPB IV ONE (17:42)
[2020-12-03] MEDS ORDERED: FENTANYL CITR 100 MCG/2 ML ONE (17:42)
[2020-12-03] MEDS ORDERED: SMZ./TMP. 800/160 MG TABLET ONE (17:42)
[2020-12-03 18:02] LABS: Urine Bacteria LOADED /HPF (<20); Urine Mucus HEAVY /HPF (NONE SEEN); Urine RBC <5 /HPF (NONE SEEN)
[2020-12-03 18:51] VITALS: BP 127/79; O2SAT 98
[2020-12-03 18:52] VITALS: TEMP 97.9
[2020-12-03 19:17] LABS: Urine Blood TRACE (NEG); Urine Glucose NEGATIVE (NEG); Urine Protein 1+ (NEG); Urine Specific Gravity >1.030 (1.005-1.030); Urine pH 5.5 (5.0-7.0)
== END 2020-12-03 18:26 | disposition home or self-care (01) ==
LOC: ER 15:36
DX: N39.0 Urinary tract infection, site not specified (principal); L03.115 Cellulitis of right lower limb; Z96.641 Presence of right artificial hip joint
CPT/HCPCS: 96365; 87088; 85025; 87086; 80048; 36415; 85610; 84145; 96375; 99284; J3010; 81003; 81015

== ENCOUNTER 2021-04-23 14:32 | Emergency (ER) | payer BC ==
--- OUTSIDE RECORDS SUMMARY | 2021-04-23 14:35 | XMS REPORT | Continuity of Care Document ---
:1970 Author Organization [facility] t Address [address] [place] [address] Care Team Providers Name Role Phone Nadya Rick DUMONT Attending Clinician Kevin ARAYA Attending Clinician Alex ARAYA, Yvonne [...] Date Clinician No Known DA Active U 2017- [facility] Medications Ordered Filled Start Stop Current Ordering Indication Dosage Frequency Signature Comments Components Source Medication Medication Date Date Medication? Clinician (SIG) Name Name Becky Garciawilliam 2018-0 Yes Chuy [address] [facility] 2-15 [...] Date/Time Type Type Clinicians Facility Department ID 2021-04-22 2021-04-22 [facility] [id number] 19:50:00 23:06:00 Esme Anderson [id number] Rupal [id number] [place] [id number] 2020-10-14 2020-10-15 Emergency Nader Brown 1.2.840. [id number] 12:51:00 17:51:00 Bello Johnson [id number] [facility] [id number] 2019-12-24 2019-12-24 [facility] [id number] [facility] 10:00:00 10:00:00 [facility] Clin[facility] 2019-08-10 2019-08-10 [facility] [id number] [facility] 15:43:00 15:43:00 [facility] 2019-08-10 2019-08-10 [facility] [id number] [facility] 11:51:00 11:51:00 [facility] 2019-08-02 2019-08-02 [facility] [id number] [facility] 11:05:00 11:05:00 [facility] 2019-04-01 2019-04-01 [facility] [id number] [facility] 12:44:00 12:44:00 [facility] 2019-03-29 2019-03-29 [facility] [id number] [facility] 10:00:00 10:00:00 [facility] Results Test Description Test Time Test Comments Results Result [facility] e Comments - XR PELVIS 09/162019-06-04 Patient Name: VIEWS 09:23:00 ISABELLA TENORIO Unit No: [id number] EXAMS: CPT CODE: [id number] XR PELVIS 09/16 VIEWS 81862 AP view the pelvis COMMENT: COMPARISON: No prior exams available. Completed total right hip arthroplasty. Prosthesis appears to be in good position. at 0923 Reported and signed by: Corrie Spears MD CC: Alejo Gregg; Ochoa Barrera MD Technologist: BELLO RIVERA (RT.R) Transcribed D/ (922) t.SDR.GVG [facility] NAME: ISABELLA TENORIO [address] [facility] PHYS: Alejo Ramirez : 1970 AGE: 49 SEX: F [place] [address] LOC: Y.315 A PHONE #: [phone] EXAM DATE: 06/01/2019 STATUS: DIS IN FAX #: [phone] RAD #: D/C DT 06/02/2019 PAGE 1 Signed Report Patient Name: ISABELLA TENORIO Unit No: [id number] EXAMS: CPT CODE: [id number] XR PELVIS 1/2 VIEWS 04081 <Continued> Orig Print D/T: S: 06/04/2019 (925) [facility] NAME: ISABELLA TENORIO [address] [facility] PHYS: Alejo Ramirez : 1970 AGE: 49 SEX: F [place] [address] LOC: Y.315 A PHONE #: [phone] EXAM DATE: 06/01/2019 STATUS: DIS IN FAX #: [phone] RAD #: D/C DT 06/02/2019 PAGE 2 [...] measure: (test code = GFR) mL/min/1.7 3 p3Moyzgachm Range:Healthy A dults >90 mL/min/1.73 m2 For Chronic Kidney Disease: Stage II Mi ld Decrease in GFR 60-9 0 Stage III Moderate Decrease in GFR 30-59 Stage IV Severe Decrease in GFR 15-29 Stage V Kidney Failure <15 CREATININE (test code = CREAT) 0.86 mg/dL 0.55-1.30 N CALCIUM (test code = CA) 8.8 mg/dL 8.2-10.1 N HGB [id number] 06:21:00 Test Item Value Reference Range Interpretation Comments HEMOGLOBIN (test code = HGB) 10.2 g/dL 12-16 L HEMATOCRIT (test code = HCT) 31.5 % 37-47 L - XR PELVIS 1/2 [id number] 12:04:00 Patient Name: ISABELLA TENORIO Unit No: [id number] EXAMS: CPT CODE: [id number] XR PELVIS 1/2 VIEWS 70868 INTRAOPERATIVE LEG LENGTH FILM COMMENT: COMPARISON: Noprior exams available. In progress right hip replacement is noted. at 1204 Reported and signed by: Jw Castro MD CC: Alejo Gregg; Ochoa Barrera MD Technologist: BELLO RIVERA (RT.R) Transcribed D/ (1204) t.BENTLEYR.JCL [facility] NAME: ISABELLA TENORIO [address] [facility] PHYS: Alejo Ramirez : 1970 AGE: 49 SEX: F [place], [place] [address] LOC: Y.998 7 PHONE #: [phone] EXAM DATE: 06/01/2019 STATUS: ADM IN FAX #: [phone] RAD #: D/C DT PAGE 1 Signed Report Patient Name: ISABELLA TENORIO Unit No: [id number] EXAMS: CPT CODE: [id number] XR PELVIS 1/2 VIEWS 49349 <Continued> Orig Print D/T: S: 06/01/2019 (1207) [facility]: [facility] [address] [facility] PHYS: Alejo Ramirez : 1970 AGE: 49 SEX: F [place], [place] [address] LOC: Y.998 7 PHONE #: [phone] EXAM DATE: 06/01/2019 STATUS: ADM IN FAX #: [phone] RAD #: D/C DT PAGE 2 Signed Report- XR PELVIS 1/2 [id number] 12:03:00 Patient Name: ISABELLA TENORIO Unit No: [id number] EXAMS: CPT CODE: [id number] XR PELVIS 1/2 VIEWS 64973 INTRAOPERATIVE LEG LENGTH FILM COMMENT: COMPARISON: Noprior exams available. In progress right hip replacement is noted. at 1203 Reported and signed by: Jw Castro MD CC: Alejo Gregg; Ochoa Barrera MD Technologist: BELLO RIVERA (RT.R) Transcribed D/ (1205) tBONIFACIO [facility] NAME: ISABELLA TENORIO [address] [facility] PHYS: Alejo Ramirezor Eulogio : 1970 AGE: 49 SEX: F [place], [place] [address] LOC: Y.998 7 PHONE #: [phone] EXAM DATE: 06/01/2019 STATUS: ADM IN FAX #: [phone] RAD #: D/C DT PAGE 1 Signed Report Patient Name: ISABELLA TENORIO Unit No: [id number] EXAMS: CPT CODE: [id number] XR PELVIS 1/2 VIEWS 54779 <Continued> Orig Print D/T: S: 06/01/2019 (1206) [facility]: [facility] [address] [facility] PHYS: Lit Ramirezemely Galarza Eulogio : 1970 AGE: 49 SEX: F [place], [place] [address] LOC: Y.998 7 PHONE #: [phone] EXAM DATE: 06/01/2019 STATUS: ADM IN FAX #: [phone] RAD #: D/C DT PAGE 2 Signed ReportAB HIV 19:41:00 Test Item Value Reference Range Interpretation Comments AB HIV 1 (test code NONREACTIVE NONREACTIVE DONE AT: [facility] = HIV1AB) [place] [id number] [place], [place] [address] by [employer] aur 4th Gen HIV Ag/Ab C ombo Screen AB HIV 1 19:40:00 Test Item Value Reference Range Interpretation Comments AB HIV 1 2 (test NONREACTIVE NONREACTIVE Done by S [employer] code = [id number]) 4th Gen HIV Ag/Ab Combo Screen COMPREHENSIVE METABOLIC [id number] 12:48:00 Test Item Value Reference Range Interpretation [...] RATE (test code = GFR) mL/mi n/1.73 [id number] Range:Healthy Adults >90 mL/min/1.73 m2 For Chronic [...] H TOTAL (test code = ALKP) URINALYSIS [id number] 12:07:00 Test Item Value Reference Range Interpretation [...] = MUCU) 2+ /LPF NONE SEEN PROTHROMBIN [id number] 12:05:00 Test Item Value Reference Range Interpretation [...] v garcia IS PATIENT ON ANTICOAGULANTS ? [facility] Lab been notified if Patient is on Heparin Drip? NOTHROMBOPLASTIN TIME [id number] 12:05:00 Test Item Value Reference Range Interpretation Comments PTT ACTIVATED (test code = APTT) 31.7 secs 24.9-37.0 N IS PATIENT ON ANTICOAGULANTS ? [facility] Lab been notified if Patient is on Heparin Drip? NOCBC W/AUTO [id number] 11:37:00 Test Item Value Reference Range Interpretation [...]
[2021-04-23 16:07] LABS: ALT/SGPT 31 U/L (12-78); Albumin 3.5 g/dL (3.4-5.0); Alkaline Phosphatase 147 U/L (45-117); BUN Blood Urea Nitrogen 12 mg/dL (7-18); Bicarbonate 27 mmol/L (21-32); Bilirubin Direct < 0.1 mg/dL (0-0.2); Bilirubin Total 0.3 mg/dL (0.2-1.0); Glucose Level 82 mg/dL (74-106); NT PRO-BNP 43 pg/mL (<125); Protein, Total 7.7 g/dL (6.4-8.2); Sodium Level 143 mmol/L (136-145); Troponin (Emerg Dept Use Only) < 0.02 ng/mL (0.0-0.045)
[2021-04-23 16:11] LABS: AST/SGOT 33 U/L (15-37); Basophils % 1.3 % (0-1.3); Lymphocytes % 29.5 % (15.3-44.8); MPV 11.8 fL (7.6-11.3); Potassium 4.2 mmol/L (3.5-5.1); Protime INR 1.03; RBC Red Blood Cell Count 4.69 M/uL (3.86-4.86)
[2021-04-23] MEDS ORDERED: dexAMETHasone 4 MG/ML VIAL ONE (17:38)
--- NOTE | 2021-04-23 17:49 | RAD REPORT ---
EXAM DESCRIPTION: RAD - Chest Single View - 04/23/2021 5:33 pm CLINICAL HISTORY: CHEST PAIN COMPARISON: Chest Single View dated 08/03/2017; Chest Single View dated 07/02/2016 FINDINGS: No evidence of edema or pneumonia. The heart size is within normal limits.No acute osseous abnormality. No significant pleural effusions or pneumothorax. IMPRESSION: No acute cardiopulmonary disease.
--- NOTE | 2021-04-23 17:49 | RAD REPORT ---
EXAM DESCRIPTION: CT - Chest For Pe Angio - 04/23/2021 5:35 pm CLINICAL HISTORY: CHEST PAIN COMPARISON: No comparisons FINDINGS: Chest Wall: No suspicious thyroid nodules or pathologic lymphadenopathy. Lungs: No acute abnormality. Scattered small bilateral pulmonary nodules, none of which are overly ventura spicious. These are not well assessed due to motion artifact. None measure over 5 millimeters. Pleura: No significant effusions or pneumothorax. Mediastinum/renan: No pathologic lymphadenopathy. Pulmonary arteries/Aorta: No filling defect identified. No aortic aneurysm. Heart: No significant pericardial effusion. Normal heart size. Upper abdomen: No acute abnormality. Hepatic steatosis. Bones: No acute abnormality. IMPRESSION: Negative for pulmonary embolism. No other acute findings within the chest. Scattered non specific pulmonary nodules. If the patient has significant risk factors for lung cancer then recommen d 12 month follow-up chest CT, otherwise no follow-up is required.
--- NOTE | 2021-04-23 18:12 | ER ---
Nurse's Notes [facility] Name: Emani Roy Age: 51 yrs Sex: Female : 1970 Arrival Date: 04/23/2021 Time: 14:59 Bed 26 Private MD: Diagnosis: Chest pain, unspecified;Pleurisy Presentation: 04/23 15:00 Chief complaint: EMS states: reproducible chest pain X 20 minutes, happened yesterday iw also. Coronavirus screen: Client presents with at least one sign or symptom that may indicate coronavirus-19. Ebola Screen: Patient negative for fever greater than or equal to 101.5 degrees Fahrenheit, and additional compatible Ebola Virus Disease symptoms Patient denies exposure to infectious person. Patient denies travel to an Ebola-affected area in the 21 days before illness onset. No symptoms or risks identified at this time. Onset of symptoms was April 23, 2021. 15:00 Method Of Arrival: EMS: [facility] iw 15:00 Acuity: ARIANNE 3 iw 18:33 Initial Sepsis Screen: Does the patient meet any 2 criteria? No. Patient's initial zb sepsis screen is negative. Does the patient have a suspected source of infection? No. Patient's initial sepsis screen is negative. Risk Assessment: Do you want to hurt yourself or someone else? Patient reports no desire to harm self or others. 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 - Family history:: not pertinent. - Social history:: Smoking status: unknown. - Hospitalizations: : No recent hospitalization is reported. Screenin:28 Abuse screen: Denies threats or abuse. Denies injuries from another. Nutritional zb screening: No deficits noted. Tuberculosis screening: No symptoms or risk factors identified. Fall Risk None identified. Assessment: 17:27 General: Appears in no apparent distress. comfortable, Behavior is calm, cooperative, zb Denies fever, feeling ill, fatigue, chills. Pain: Complains of pain in anterior aspect of left upper chest, left breast and posterior chest Pain does not radiate. Pain currently is 1 out of 10 on a pain scale. at worst was 9 out of 10 on a pain scale. Quality of pain is described as sharp. 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 Full function. Cardiovascular: Reports chest pain, lightheadedness, shortness of breath, Heart tones S1 S2 present Patient's skin is warm and dry. Rhythm is regular. Respiratory: Airway is patent. GI: Abdomen is obese. Derm: Skin is normal. Musculoskeletal: Range of motion: intact in all extremities. 18:32 Reassessment: Patient appears in no apparent distress at this time. Patient and/or zb family updated on plan of care and expected duration. Pain level reassessed. Patient is alert, oriented x 3, equal unlabored respirations, skin warm/dry/pink. patient able to ambulated out. gait even and steady. no appearance of distress. Vital Signs: 15:48 BP 134 / 67; Pulse 83; Resp 20; Temp 98.7(TE); Pulse Ox 100% ; Pain 6/10; kg 17:08 BP 131 / 44; Pulse 84; Resp 18; Temp 97.8(O); Pulse Ox 95% ; Pain 1/10; mh5 18:31 BP 113 / 52; Pulse 84; Resp 16; Pulse Ox 98% on R/A; zb ED Course: 14:59 Patient arrived in ED. iw 15:00 Triage completed. iw 16:50 Adolfo Frias MD is Attending Physician. rn 17:06 Patient has correct armband on for positive identification. Placed in gown. Bed in low mh5 position. Call light in reach. Side rails up X2. Adult w/ patient. Warm blanket given. supervisor felling bucking on. Pulse ox on. NIBP on. 17:07 Initial lab(s) drawn, by ED staff, sent to lab. Inserted saline lock: in right forearm, mh5 using aseptic technique. 17:07 EKG done, by ED staff, reviewed by Adolfo Frias MD. mh5 17:26 Rosetta Schulz, RN is Primary Nurse. zb 17:33 XRAY Chest (1 view) In Process Unspecified. EDMS 17:35 CT Chest For PE Angio In Process Unspecified. EDMS 18:33 Arm band placed on. zb 18:33 No provider procedures requiring assistance completed. IV discontinued, intact, zb bleeding controlled, No redness/swelling at site. Pressure dressing applied. Administered Medications: 17:26 Drug: Decadron - Dexamethasone 10 mg Route: IVP; Site: right antecubital; zb 18:30 Follow up: Response: No adverse reaction zb Outcome: 18:11 Discharge ordered by . rn 18:33 Discharged to home ambulatory. zb 18:33 Condition: stable 18:33 Discharge instructions given to patient, Instructed on discharge instructions, follow up and referral plans. Demonstrated understanding of instructions, follow-up care. 18:33 Patient left the ED. zb Signatures: Dispatcher [employer] EDMonica Gallego RN RN iw Nieto, Roman, MD MD rn Martinez, Maria [facility] Rosetta Schulz RN RN zb Graham, Kristen, RN RN kg
--- NOTE | 2021-04-23 18:12 | EDPHYS ---
Physician Documentation [facility] Name: Emani Roy Age: 51 yrs Sex: Female : 1970 Arrival Date: 04/23/2021 Time: 14:59 Bed 26 Private MD: ED Physician Adolfo Frias HPI: 04/23 17:15 This 51 yrs old Black Female presents to ER via EMS with complaints of Chest Pain. rn 17:15 The patient or guardian reports chest pain that is located primarily in the anterior rn chest wall, left. Onset: today. The pain does not radiate. Associated signs and symptoms: Pertinent positives: None. Pertinent negatives: abdominal pain, cough, diaphoresis, dizziness, headache, lower extremity pain, lower extremity swelling, lightheadedness, nausea, near syncope, palpitations, recent travel, shortness of breath, syncope, vomiting. The chest pain is described as sharp, stabbing. Duration: The patient or guardian reports a single episode. Modifying factors: The symptoms are alleviated by nothing. the symptoms are aggravated by deep breath. Severity of pain: At its worst the pain was mild in the emergency department the pain has improved. The patient has not experienced similar symptoms in the past. The patient has not recently seen a physician. Patient reports left-sided sharp, stabbing chest pain that began earlier today while seated at work. Denies focal trauma. No fever or infectious symptoms. No cough. States worse with deep breath. Has history of lupus. No history of DVT or PE. States pain resolved while waiting in waiting room without intervention or treatment.. 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 - Family history:: not pertinent. - Social history:: Smoking status: unknown. - Hospitalizations: : No recent hospitalization is reported. ROS: 17:15 Constitutional: Negative for fever, chills, and weight loss, Eyes: Negative for injury, rn pain, redness, and discharge, Neck: Negative for injury, pain, and swelling, Cardiovascular: Negative for palpitations, and edema, Respiratory: Negative for shortness of breath, cough, wheezing Abdomen/GI: Negative for abdominal pain, nausea, vomiting, diarrhea, and constipation, Back: Negative for injury and pain, : Negative for injury, bleeding, discharge, and swelling, MS/Extremity: Negative for injury and deformity, Skin: Negative for injury, rash, and discoloration, Neuro: Negative for headache, weakness, numbness, tingling, and seizure. 17:15 All other systems are negative. rn Exam: 17:15 Constitutional: This is a well developed, well nourished patient who is awake, alert, rn and in no acute distress. Head/Face: Normocephalic, atraumatic. Eyes: Periorbital areas with no swelling, redness, or edema. Chest/axilla: Normal chest wall appearance and motion. Nontender with no deformity. No lesions are appreciated. Cardiovascular: Regular rate and rhythm. No pulse deficits. Respiratory: Speaking full sentences, unlabored. No increased work of breathing, no retractions or nasal flaring. Abdomen/GI: Soft, non-tender Back: No spinal tenderness. No costovertebral tenderness. Full range of motion. Skin: Warm, dry MS/ Extremity: Pulses equal, no cyanosis. Neurovascular intact. Full, normal range of motion. Equal circumference. Neuro: Awake and alert, GCS 15 18:08 ECG was reviewed by the Attending Physician. rn Vital Signs: 15:48 BP 134 / 67; Pulse 83; Resp 20; Temp 98.7(TE); Pulse Ox 100% ; Pain 6/10; kg 17:08 BP 131 / 44; Pulse 84; Resp 18; Temp 97.8(O); Pulse Ox 95% ; Pain 1/10; mh5 18:31 BP 113 / 52; Pulse 84; Resp 16; Pulse Ox 98% on R/A; zb MDM: 16:50 Patient medically screened. rn 18:08 Differential diagnosis: acute myocardial infarction, acute pericarditis, coronary rn artery disease chest wall pain, costochondritis, esophagitis, gastritis, gastroesophageal reflux disease (GERD), pleurisy, pneumothorax, pulmonary embolus, Pleurisy from lupus. Data reviewed: vital signs, nurses notes, lab test result(s), EKG, radiologic studies, CT scan, plain films, and as a result, I will discharge patient. 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 Interpretation: normal. Counseling: I had a detailed discussion with the patient and/or guardian regarding: the historical points, exam findings, and any diagnostic results supporting the discharge/admit diagnosis, lab results, radiology results, to return to the emergency department if symptoms worsen or persist or if there are any questions or concerns that arise at home. Response to treatment: the patient's symptoms have markedly improved after treatment, and as a result, I will discharge patient. Special discussion: Based on the patient's history, exam, and Dx evaluation, there is no indication for emergent intervention or inpatient Tx. It is understood by the patient/guardian that if the Sx's persist or worsen they need to return immediately for re-evaluation. I discussed with the patient/guardian in detail that at this point there is no indication for admission to the hospital. It is understood, however, that if the symptoms persist or worsen the patient needs to return immediately for re-evaluation. ED course: CT chest for PE negative, troponin negative, no ischemia on ECG. Will DC home with PCP follow-up. Patient declined steroids. Will DC with anti-inflammatory medication.. 04/23 15:12 Order name: Basic Metabolic Panel; Complete Time: 16:25 kg 04/23 15:12 Order name: CBC with Diff; Complete Time: 16:35 kg 04/23 15:12 Order name: LFT's; Complete Time: 16:25 kg 04/23 15:12 Order name: Magnesium; Complete Time: 16:25 kg 04/23 15:12 Order name: NT PRO-BNP; Complete Time: 16:25 kg 04/23 15:12 Order name: PT-INR; Complete Time: 16:35 kg 04/23 15:12 Order name: Troponin (emerg Dept Use Only); Complete Time: 16:25 kg 04/23 15:12 Order name: XRAY Chest (1 view); Complete Time: 17:49 kg 04/23 15:12 Order name: EKG; Complete Time: 15:14 kg 04/23 15:12 Order name: Cardiac monitoring; Complete Time: 17:26 kg 04/23 15:12 Order name: EKG - Nurse/Tech; Complete Time: 17:27 kg 04/23 15:12 Order name: IV Saline Lock; Complete Time: 17:27 kg 04/23 17:11 Order name: CT Chest For PE Angio; Complete Time: 17:49 rn 04/23 15:12 Order name: Labs collected and sent; Complete Time: 17:27 kg 04/23 15:12 Order name: O2 Per Protocol; Complete Time: 17:27 kg 04/23 15:12 Order name: O2 Sat Monitoring; Complete Time: 17:27 kg EC:08 Rate is 80 beats/min. Rhythm is regular. QRS [place] is Normal. [place] interval is normal. QRS rn interval is normal. QT interval is normal. No Q waves. T waves are Normal. No ST changes noted. Clinical impression: Normal ECG. Interpreted by me. Reviewed by me. Administered Medications: 17:26 Drug: Decadron - Dexamethasone 10 mg Route: IVP; Site: right antecubital; zb 18:30 Follow up: Response: No adverse reaction zb Disposition Summary: 04/23/21 18:11 Discharge Ordered Location: Home rn Problem: new rn Symptoms: have improved rn Condition: Stable rn Diagnosis - Chest pain, unspecified rn - Pleurisy rn Followup: rn - With: Private Physician - When: As needed - Reason: Recheck today's complaints, Re-evaluation by your physician Discharge Instructions: - Discharge Summary Sheet rn - Nonspecific Chest Pain, Adult rn - Chest Wall Pain rn - Pleurisy rn Forms: - Medication Reconciliation Form rn - Thank You Letter rn - 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
[2021-04-23 18:53] VITALS: TEMP 97.8
[2021-04-23 18:55] VITALS: BP 113/52; O2SAT 98
--- NOTE | 2021-04-24 07:57 | EKG ---
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
== END 2021-04-23 18:33 | disposition home or self-care (01) ==
LOC: ER 14:32
DX: R09.1 Pleurisy (principal)
CPT/HCPCS: 93005; 85025; 80048; 36415; 83735; 85610; 80076; 84484; 83880; 71275; 71045; 96374; 99285; Q9967; J1100

== ENCOUNTER 2021-08-29 11:16 | Emergency (ER) | payer BC ==
--- OUTSIDE RECORDS SUMMARY | 2021-08-29 11:20 | XMS REPORT | Continuity of Care Document ---
:1970 Author Organization [facility] t Address [address] [place] [id number] Care Team Providers Name Role Phone Julian Rey Attending Clinician Unavailable Jesus Grace Attending Clinician Unavailable Rick Ba Attending Clinician Kevin ARAYA Attending Clinician Yvonne Johnson MD Attending Clinician Tahira Ferrari MD Attending Clinician KEVIN Attending Clinician Unavailable Julian Barrera Admitting Clinician Unavailable Tahira Ferrari MD Admitting Clinician Payers Payer Name Policy Type Policy Number Effective Date Expiration Date S ource Problems Condition Condition Condition Status Onset Resolution Last Treating Co mments Source Name Details Category Date Date Treatment Clinician Date Morbid Morbid Disease Active Univers obesity obesity 1-31 [place]y of with [place] index 00 Me dical of of Branch 40.0-49.9 40.0-49.9 COVID-19 COVID-19 Disease Active Unive rs 1-30 ity of 00:00: [place] 00 Medical Branch Vitamin D Vitamin D Disease Active Uni vers deficiency deficiency 1- it y of 00:00: [place] 00 Medical Branch Lumbago Lumbago Disease Active Univers 1-05 ity of 00:00: [place] 00 Medical Branch Antiphosph Antiphosph Disease Active U nivers olipid olipid 105 ity of antibody antibody 00:00: [place] positive positive 00 Medica l Branch Systemic Systemic Disease Active 2008-09 Unive rs lupus lupus 1-04 ity of erythemato erythemato [place] meg meg 00 Medical Branch 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 ICD10 Diagnosis Term It Program Manager Utility Gout Gout Disease Active 2008-09 Univers 0-06 ity of 00:00: [place] 00 Medical Branch Pain in Pain in Disease Active 2008-09 Univers joint, joint, 0-06 ity of lower leg lower leg 00:00[place] Primary Primary Problem Active [facility] oste[facility]r osteoarthr Kassie kes - [facility] hip [facility] Primary Primary Problem Active [facility] osteoarthr osteoarthr Kassie kes - itis of itis of [facility] right hip right hip l Outpati ent Clinics Nontraumat Nontraumat Diagnosis Active [facility] ic tear of ic tear of [place] k[facility] - [facility] left [facility] rotator rotator l cuff, cuff, Outpati unspecifie [...] DA Active U 2017- [facility] Allergie 0-17 [place] 00:00: Orthope 00 dic Hospita l No Known DA Active U 2017-09 [facility] Allergie 0-17 [facility] s 00:[facility]: Hospita 00 l of [place] NO KNOWN Drug Active Univers ALLERGIE Class ity of S [facility] Branch Social History Social Habit Start Date Stop Date Quantity Comments Source Exposure to Not sure [facility] SARS-CoV-2 [facility] (event) Branch Tobacco use and 2021-04-22 2021-04-22 Never used Universit y of exposure 00:00:00 00:00:00 [facility] Branch Alcohol intake 2021-04-22 2021-04-22 Current drinker Unive rsity of 00:00:00 00:00:00 of alcohol [place] [facility] (finding) Branch History SDOH 2020-10-14 2020-10-14 5 University o f Financial 00:00:00 00:00:00 [place] [facility] History SDOH Food 2020-10-14 2020-10-14 1 Univers ity of Worry 00:00:00 00:00:00 [place] [facility] History SDOH Food 2020-10-14 2020-10-14 1 Univers ity of Scarcity 00:00:00 00:00:00 [place] [facility] History SDOH 2020-10-14 2020-10-14 2 University o f Transport Med 00:00:00 00:00:00 [place] Medic al Branch History SDOH 2020-10-14 2020-10-14 2 University o f Transport Non-Med 00:00:00 00:00:00 [facility] edical Branch Alcohol Comment 2020-10-14 2020-10-14 social Universit y of 00:00:00 00:00:00 [facility] Sex Assigned At [birth year] Universit y of 00:00:00 00:00:00 [facility] Smoking Status Start Date Stop Date Source Never smoker [facility] Medications Ordered Filled Start Stop Current Ordering Indication Dosage Frequency Signature Comments Components Source Medication Medication Date Date Medication? Clinician (SIG) Name Name amLODIPine Yes 10mg Take 10 mg U nivers 10 mg 1-31 by mouth ity of tablet 23:51: daily. [place] 54 Medical Branch aspirin 81 2021-0 Yes 81mg Take 81 mg U nivers mg chewable 10-15 by mouth ity of tablet 23:51: daily. [address] amLODIPine Yes 10mg Take 10 mg U nivers 10 mg 10-15 by mouth ity of tablet 23:51: daily. [address] aspirin 81 Yes 81mg Take 81 mg U nivers mg chewable 10-15 by mouth ity of tablet 23:51: daily. [address] colchicine Yes .6mg 0.6 mg, Univ ers (COLCRYS) 10-15 Oral, ity of tablet 0.6 15:00: DAILY, [place] mg 00 First dose Medical (after Branch last modificati on) on [place] 10/15/20 at 0900, Until Discontinu ed aspirin Yes 81mg 81 mg, Univers chewable 10-15 Oral, ity of tablet 81 15:00: DAILY, [place] mg 00 First dose [facility] 10/15[facility]20 at 0900, Until Discontinu ed, Routine amLODIPine Yes 10mg 10 mg, Unive rs (NORVASC) 10-15 Oral, ity of tablet 10 15:00: DAILY, [place] mg 00 First dose Medical [facility] 10/15/20 at 0900, Until Discontinu ed, Routine enoxaparin Yes 40mg 40 mg, Unive rs (LOVENOX) 10-15 Subcutaneo ity of injection 15:00: [place], [place]ILY, [place] 40 [place] 00 First dose Medical [facility] 10/15/20 at 0900, Until Discontinu ed, Routine remdesivir No 100mg 100 mg, IV Univers 100 mg in 10-1504 Infusion, ity of NaCl 0.9% 06:00: 21:59 DAILY AT [facility] as (NS) 250 mL 00 :00 1600, 4 Medic al infusion doses, Branch First dose on 10/15/20 at 1600, Last dose on Fri10/18/20 at 1600, 250 mL
Cristin ent informed of their inclusion in the [employer] database for 5 years for purposes of emergency use of remdesivir . No
Plea se discuss and [facility] Retention Consent form with the patient: I will discuss and complete the [place] [address] Disaster Informatio n Retention Consent form with the patient sennosides- 2020-0 Yes 1{tbl} 1 tablet, Univers docusate 10-15 Oral, ity of sodium 02:00: DAILY, [place] (SENOKOT-S) 00 First dose Me dical 8.6-50 mg on Sat Branch per tablet 10/14/20 at 1 tablet 1999, Until Discontinu ed, Routine Polyethylen 2020-0 Yes 17g 17 g, Unive rs e Glycol 10-15 Oral, ity of 3350 02:00: DAILY, [place] (MIRALAX) 00 First dose Medi mehdi powder 17 g on Sat Branch 10/14/20 at 1999, Until Discontinu ed, Routine hydrOXYchlo 0 Yes 200mg 200 mg, Un leeanne roQUINE 10-15 Oral, BID, ity of (PLAQUENIL) 02:00: First dose [place] tablet 200 00 on [facility] Medical mg 10/14/20 at Branch 1999, Until Discontinu ed, Routine
Indicatio n: Rheumatic disorder allopurinoL 0 Yes 300mg 300 mg, Un leeanne (ZYLOPRIM) 10-15 Oral, BID, ity of tablet 300 02:00: First dose [place] mg 00 on [facility] Medical 10/14/20 at Branch 1999, Until Discontinu ed, Routine indomethaci 0 Yes 50mg 50 mg, Univ ers n (INDOCIN) 10-15 Oral, ity of capsule 50 01:22: TIDPRN, [place] mg 59 Starting Medical Sat Branch 10/14/20 at 1922, Until Discontinu ed, Routine, Pain, Gout flare guaiFENesin 2020-0 Yes [id number] 200mg Take 0.5 Univers 400 mg -31 tablets by ity of tablet 00:00: mouth [place] 00 every 4 Medical (four) Branch hours as needed for Cough. guaiFENesin 2020-0 Yes [id number] 200mg Take 0.5 Univers 400 mg -31 tablets by ity of tablet 00:00: mouth [place] 00 every 4 Medical (four) Branch hours as needed for Cough. ipratropium 2020-0 Yes 2{puff} 2 Puff, Univers (ATROVENT 10-14 Inhalation ity of HFA) 23:45: , Q6HPRN, [place] inhaler 2 57 Starting Medica l Puff Sat Branch 10/14/20 at 1745, Until Discontinu ed, Routine, Shortness of Breath, Wheezing, Bronchospa sm, Chest tightness< br>Is this order for a patient with suspected or confirmed COVID-19 infection? Yes albuterol 0 Yes 2{puff} 2 Puff, Un leeanne (VENTOLIN) -30 Inhalation ity of inhaler 2 23:45: , Q6HPRN, [place] Puff 56 Starting Medical Sat Branch 10/14/20 at 1745, Until Discontinu ed, Routine, Wheezing, Shortness of Breath, Bronchospa sm, Chest tightness< br>Is this order for a patient with suspected or confirmed COVID-19 infection? Yes guaiFENesin 0 Yes 200mg 200 mg, Un leeanne (FENESIN 1-30 Oral, ity of IR) tablet 23:45: Q4HPRN, [place] 200 mg 54 Starting Medical Sat Branch 10/14/20 at 1745, Until Discontinu ed, Routine, Cough acetaminoph 0 Yes 650mg 650 mg, Un leeanne en 30 Oral, ity of (TYLENOL) 23:42: Q6HPRN, [place] tablet 650 31 Starting Medic al mg Sat Branch 10/14/20 at 1742, Until Discontinu ed, Routine, Pain (scale 1-3) acetaminoph 0 202- No 975mg 975 mg, U nivers en 30 30 Oral, ity of (TYLENOL) 20:15: 19:25 ONCE, 1 [place] tablet 975 00 :00 dose, Sat Medi mehdi mg 10/14/20 at Branch 1415, KINSEY Becky Pena 2018- Yes [place] [address] [facility] 2-15 [facility] 00[facility] morning [facility] 00 with food l Outpati ent Clinics [facility] Yes TAKE ONE Un leeanne roquine 4-22 TABLET BY ity of (PLAQUENIL) 00:00: MOUTH [place] 200 mg 00 EVERY DAY Medical tablet Branch [facility] Yes TAKE ONE Un leeanne roquine 4-22 TABLET BY ity of (PLAQUENIL) 00:00: MOUTH [place] 200 mg 00 EVERY DAY Medical tablet Branch indomethaci Yes 2TID WITH U nivers n (INDOCIN) 4-08 MEALS - ity o f 25 mg 00:00: TAKE TWO [place] capsule 00 CAPSULES Medical BY MOUTH Branch THREE TIMES DAILY WITH MEALS indomethaci Yes 2TID WITH U nivers n (INDOCIN) 4-08 MEALS - ity o f 25 mg 00:00: TAKE TWO [place] capsule 00 CAPSULES Medical BY MOUTH Branch THREE TIMES DAILY WITH MEALS indomethaci 2020- No 50mg Take 1 Cap Univers n (INDOCIN) 09-25 by mouth 3 i ty of 50 mg 00:00: 00:00 (three) [place] capsule 00 :00 times Medical daily with Branch meals. Colchicine 2009-09 Yes [id number] .5mg Take 0.5 Univers 0.5 mg Tab 1-18 mg by ity of 00:00: mouth 2 (two) Medical times Branch daily. methotrexat 2009-09 Yes [id number] 10mg Take 4 Univers e 1-18 Tabs by ity of (RHEUMATREX 00:00: mouth ) 2.5 mg 00 weekly. Medical tablet Branch Colchicine 2009-09 Yes [id number] .5mg Take 0.5 Univers 0.5 mg Tab 1-18 mg by ity of 00:00: mouth 2 (two) Medical times Branch daily. methotrexat 2009-09 Yes [id number] 10mg Take 4 Univers e 1-18 Tabs by ity of (RHEUMATREX 00:00: mouth ) 2.5 mg 00 weekly. Medical tablet Branch ALLOPURINOL 2008-09 Yes [id number] take 1 Univers 300 MG ORAL 1-04 tablet ity of TAB 00:00: daily Medical Branch ALLOPURINOL 2008-09 Yes [id number] take 1 Univers 300 MG ORAL 1-04 tablet ity of TAB 00:00: daily Medical Branch Hydroxychlo Hydroxychlo Yes [place] not [facility] Immunizations Ordered Filled Immunization Date Status Comments Sour e Immunization Name Name SARS-COV-2 COVID-19 2021-01-13 Completed Unive rsity of PFIZER VACCINE 00:00:00 [facility] [place] [facility] SARS-COV-2 COVID-19 2020-12-23 Completed Unive rsity of PFIZER VACCINE 00:00:00 [facility] [place] [facility] Vital Signs Vital Name Observation Time Observation Value Comments Source Systolic blood 2021-04-23 00:42:00 148 mm[Hg] Univer sity of [facility] Diastolic blood 2021-04-23 00:42:00 83 mm[Hg] Unive rsity [facility] Heart rate 2021-04-23 00:42:00 86 /min [facility] Body temperature 2021-04-23 00:42:00 36.72 Heather [facility] Respiratory rate 2021-04-23 00:42:00 20 /min [facility] Body height 2021-04-23 00:42:00 167.6 cm [facility] Body weight 2021-04-23 00:42:00 138.347 kg [facility] BMI 2021-04-23 00:42:00 49.23 kg/m2 [facility] Oxygen saturation in 2021-04-23 00:42:00 100 /min [facility] Arterial blood by [facility] [place] [facility] Pulse oximetry Branch Systolic blood 2021-04-23 00:42:00 148 mm[Hg] Univer sity of [facility] Diastolic blood 2021-04-23 00:42:00 83 mm[Hg] Unive rsity of [facility] Heart rate 2021-04-23 00:42:00 86 /min [facility] Body temperature 2021-04-23 00:42:00 36.72 Heather [facility] Respiratory rate 2021-04-23 00:42:00 20 /min Univ ersity of [place] [facility] Body height 2021-04-23 00:42:00 167.6 cm [facility]i ty [facility] [place] [facility] Body weight 2021-04-23 00:42:00 138.347 kg [facility]i ty [facility] [place] [facility] BMI 2021-04-23 00:42:00 49.23 kg/m2 Universi ty [facility] [place] [facility] Oxygen saturation in 2021-04-23 00:42:00 100 /min University of Arterial blood by [facility] [place] [facility] Pulse oximetry Branch Systolic blood 2020-10-15 21:42:00 114 mm[Hg] Univer sity of pressure [place] [facility] Diastolic blood 2020-10-15 21:42:00 76 mm[Hg] Unive rsity of pressure [place] [facility] Heart rate 2020-10-15 21:42:00 99 /min Universi ty [facility] [place] [facility] Body temperature 2020-10-15 21:42:00 37.17 Heather Univ ersity of [place] [facility] Respiratory rate 2020-10-15 21:42:00 20 /min Univ ersity of [place] [facility] Oxygen saturation in 2020-10-15 21:42:00 95 /min University of Arterial blood by [facility] [place] [facility] Pulse oximetry Branch Body weight 2020-10-14 18:55:00 137.893 kg Universi ty of [place] [facility] BMI 2020-10-14 18:55:00 49.07 kg/m2 [facility]i [facility] [place] [facility] Systolic blood 2020-10-15 21:42:00 114 mm[Hg] Univer sity of pressure [place] [facility] Diastolic blood 2020-10-15 21:42:00 76 mm[Hg] Unive rsity of pressure [place] [facility] Heart rate 2020-10-15 21:42:00 99 /min [facility]i ty [facility] [place] [facility] Body temperature 2020-10-15 21:42:00 37.17 Heather Univ ersity of [place] [facility] Respiratory rate 2020-10-15 21:42:00 20 /min Univ ersity of [place] [facility] Oxygen saturation in 2020-10-15 21:42:00 95 /min University of Arterial blood by [facility] [place] [facility] Pulse oximetry Branch Body weight 2020-10-14 18:55:00 137.893 kg [facility] BMI 2020-10-14 18:55:00 49.07 kg/m2 [facility] Procedures Procedure Date / Time Performing Clinician Source Performed LIPASE 2021-04-23 01:05:00 Esme Covington [facility] TROPONIN I 2021-04-23 01:05:00 Esme Covington [facility] COMP. METABOLIC PANEL 2021-04-23 01:05:00 Esme Covington Un [facility] ([id number]) Medical Branch CBC WITH DIFF 2021-04-23 01:05:00 Esme Covington [facility] NOTICE OF PRIVACY 2021-04-23 00:10:09 Doctor Unassigned, No Univ [facility] PRACTICES Name [facility] CONSENT/REFUSAL FOR 2021-04-23 00:09:52 Doctor Unassigned, No [facility] DIAGNOSIS AND TREATMENT Name [facility] BASIC METABOLIC PANEL 2020-10-15 10:41:00 Levon Bentley Un [facility] (NA, K, CL, CO2, Medical Branch GLUCOSE, BUN, CREATININE, CA) LIPID PANEL 2020-10-15 10:41:00 Levon Bentley [facility] ([id number])(TOTAL Medical Branch CHOLESTEROL, TRIGLYCERIDES, HDL) CBC WITH DIFF 2020-10-15 10:41:00 Levon Bentley [facility] PNEUMOCOCCAL ANTIGEN 2020-10-15 05:39:00 [facility] 2020-10-15 02:10:00 Levon Bentley [facility] D-DIMER 2020-10-15 00:16:00 Levon Bentley [facility] PROCALCITONIN 2020-10-15 00:16:00 Levon Bentley [facility] LACTATE DEHYDROGENASE 2020-10-15 00:16:00 [facility] C-REACTIVE PROTEIN 2020-10-15 00:15:00 Levon Bentley [facility] URINALYSIS 2020-10-14 19:42:00 Rakel [facility] COVID-19 (ID NOW RAPID 2020-10-14 19:27:00 Rakel Brown [facility] TESTING) [facility] XR CHEST 1 VW 2020-10-14 19:25:59 Rakel [facility] HEPATIC FUNCTION PANEL 2020-10-14 19:25:00 Rakel Brown [facility] ([id number]) (ALB,T.PRO,BILI Medical Branch T,BU/BC,ALT,AST,ALK PHOS) BASIC METABOLIC PANEL 2020-10-14 19:25:00 Rakel Brown [facility] (NA, K, CL, CO2, Medical Branch GLUCOSE, BUN, CREATININE, CA) CBC WITH DIFF 2020-10-14 19:25:00 Rakel Brown [facility] GLYCOSYLATED HEMOGLOBIN 2020-10-14 [facility] PROTHROMBIN TIME / INR 2020-10-14 19:25:00 Rakel Brown [facility] ACTIVATED PARTIAL 2020-10-14 19:25:00 Rakel Brown [facility]-BNP 2020-10-14 19:25:[address] [facility] LACTIC ACID WHOLE BLOOD 2020-10-14 19:25:00 Rakel Brown [facility] BLOOD CULTURE SCREEN 2020-10-14 19:25:00 Rakel Brown [facility] FERRITIN SERUM 2020-10-14 19:25:00 [facility] TROPONIN I 2020-10-14 19:25:00 Rakel [facility] HB ECG ROUTINE & RHYTHM 2020-10-14 19:08:50 Rakel Brown [facility] Encounters Start End Encounter Admission Attending Care Care Encounter Source Date/Time Date/Time Type Type Clinicians Facility Department ID 2021-06-19 Inpatient PHILL ValienteonRADHA [id number] [facility] 09:15:00 Jesus [id number] [place] [facility] 2021-08-20 2021-08-20 Outpatient RADHA LopezTO [id number] [facility] 13:16:00 13:16:00 Arnaud 78 [place] [facility] 2021-08-20 2021-08-20 Outpatient RADHA Lopez PAIN [id number] [facility] 13:16:00 13:16:00 Arnaud [id number] [place] [facility] 2021-06-19 2021-06-19 Outpatient RADHA Mckinney RADI [id number] [facility] 09:02:00 09:02:00 Jesus 29 [place] [facility] 2021-06-12 2021-06-12 Outpatient RADHA Rey RADI [id number] [facility] 17:30:00 17:30:00 Jesus [id number] [place] [facility] 2021-04-22 2021-04-22 Emergency [facility] [id number] 19:50:00 23:06:00 Esme Anderson [id number] [place] [id number] [place] [id number] 2021-04-22 2021-04-22 Emergency [facility] [id number] [facility] 19:50:00 23:06:00 Esme Anderson [id number] ity [facility] [id number] [place] [id number] 2021-04-22 2021-04-22 Emergency X [facility] ERT [id number] [facility] 19:10:00 19:10:00 ity of [facility] 2020-10-14 2020-10-15 Emergency Rakel Brown 1.2.840. [id number] 12:51:00 17:51:00 Bello Johnson [id number] [facility] [id number] 2020-10-14 2020-10-15 Emergency Rakel Brown 1.2.840. [id number] Univers 12:51:00 17:51:00 FatoumatajennBello Yvonne Grissom [id number] ity [facility] [id number] [place] [id number] [place] [address] Branch 2020-10-14 2020-10-14 Emergency X KEVIN [facility] ERT [id number] Univers 12:51:00 12:51:00 RAKEL solo of [facility] 2019-12-24 2019-12-24 [facility] [id number] 10:00:00 10:00:00 [facility] 2019-08-10 2019-08-10 [facility] [id number] 15:43:00 15:43:00 [facility] 2019-08-10 2019-08-10 [facility] [id number] 11:51:00 11:51:00 [facility] ent [facility] 2019-08-02 2019-08-02 [facility] [id number] 11:05:00 11:05:00 [facility] ent [facility] 2019-04-01 2019-04-01 [facility] [id number] 12:44:00 12:44:00 [facility] ent [facility] 2019-03-29 2019-03-29 [facility] [id number] 10:00:00 10:00:00 [facility] ent [facility] Results Test Description Test Time Test Comments Results Result [facility] e Comments - XR FLUORO FOR 2021-08-20 SPINE INJ 19:35:00 [facility] : 1970 Sex: F Patient Name: ISABELLA TENORIO Unit No: [id number] EXAMS: CPT CODE: [id number] XR FLUORO FOR SPINE INJ [id number] LUMBAR EPIRADICULAR INJECTION REFERRAL PHYSICIAN: Galileo Rey M.D. PREOPERATIVE DIAGNOSIS: Lumbar Radiculitis POSTOPERATIVE DIAGNOSIS: Lumbar spondylosis with spinal stenosis and bilateral lumbar radiculitis PROCEDURES PERFORMED: Fluoroscopically guided needle localization of the bilateral L3 and bilateral L4 spinal nerves with transforaminal epidurograms and epidural injection of local anesthetic and steroid. FINDINGS: Marked right L3-4 facet hypertrophy extends into the anterior foraminal region. Flow within the epidural space showed minimal displacement across the L2-3 and L3-4 discs. Provocation with injection was negative. Anesthetic response was positive with the patient noting relief of her low back and radiating lower extremity pain. Preinjection VAS 7/10. Postinjection VAS 0/10. Steroid response pending follow-up. ESTIMATED BLOOD LOSS: Minimal ANESTHESIA: TIVA COMPLICATIONS: None DETAILS OF PROCEDURE: After obtaining stable vital signs, informed consent and IV access, with no contraindications, the patient was taken to the operating room and placed in a prone position with all extremities padded and appropriate monitors placed. The patient was sterilely prepped and draped over the lumbosacral spine. Using fluoroscopic visualization the insertion sites were marked for paravertebral approaches and using standard technique, a 25 gauge needle was advanced to the base of each pedicle without paresthesias. Isovue-300 contrast 0.2 mL of was injected at each level incrementally with frequent negative aspirations to produce each epidurogram. There were no signs of intravascular or intrathecal uptake. Bupivicaine 0.75% 0.25 mL with lidocaine 4% 0.5 mL and Decadron 5 mg was then incrementally injected with frequent negative aspirations at each level and again there were no signs of intravascular or intrathecal uptake. The needles were removed and the patient was taken to the PACU in good condition. Image: Image 1 Image: Image 2 at 1934 Reported and signed by: Arnaud Grace M.D. [facility] NAME: ISABELLA TENORIO [address] [facility] PHYS: Arnaud Kinney MD [place] [address] : 1970 AGE: 51 SEX: F LOC: MarisaEZEQUIEL PHONE #: [phone] EXAM DATE: 08/20/2021 STATUS: REG [facility] FAX #: [phone] RAD #: D/C DT PAGE 1 Signed Report (CONTINUED) Patient Name: ISABELLA TENORIO Unit No: [id number] EXAMS: CPT CODE: [id number] XR FLUORO FOR SPINE INJ [id number] <Continued> CC: Ochoa Barrera MD; Galileo Rey M.D. Technologist: Madalyn Blel(R) Transcribed D/ (1934) [facility] [place] NAME: ISABELLA TENORIO [address] [facility] PHYS: Arnaud Kinney MD [place] [address] : 1970 AGE: 51 SEX: F LOC: SIGRID PHONE #: [phone] EXAM DATE: 08/20/2021 STATUS: [facility] [place] FAX #: [phone] RAD #: D/C DT PAGE 2 Signed Report Patient Name: ISABELLA TENORIO Unit No: [id number] EXAMS: CPT CODE: [id number] XR FLUORO FOR SPINE INJ [id number] <Continued> Orig Print D/T: S: 08/20/2021 (1937) [place] [facility] NAME: ISABELLA TENORIO [address] [facility] [place] PHYS: Arnaud Kinney MD [place] [address] : 1970 AGE: 51 SEX: F LOC: SIGRID PHONE #: [phone] EXAM DATE: 08/20/2021 STATUS: REG [facility] [place] FAX #: [phone] RAD #: D/C DT PAGE 3 Signed Report UR HCG QUAL 2021-08-20 14:32:00 Test Item Value Reference Range Interpretation Comme nts UR HCG QUAL (test code = HCGQLU) NEGATIVE NEGATIVE - MRI L-SPINE W/O [id number] 12:20:00 [facility] : 1970 Sex: F Patient Name: ISABELLA TENORIO Unit No: [id number] EXAMS: CPT CODE: [id number] MRI L-SPINE W/O CONT [id number] DIAGNOSIS: 1. At L1-2 there is no evidence for disc bulge or herniation, bony canal or foraminal stenosis. Bilateral facet degeneration is present.2. At L2-3 there is a grade 1 retrolisthesis and associated disc bulging lateralizing 2 mm into the foramina. There is moderate left and mild right foraminal narrowing. Mild central canal stenosis is seen with facet and ligamentum flavum hypertrophic and degenerative change. 3. At L3-4 there is 4 mm of right posterior lateral and foraminal disc protrusion with moderate to marked right foraminal narrowing. The disc is impinging on the thecal sac and the r ight L4 nerve root. Moderate to marked left foraminal narrowing is also seen. There ismoderate to marked central canal stenosis and lateral recess stenosis with facet and ligamentum flavum hypertrophic and change. A left facet cyst is present with impingement on the thecal sac 4. At L4- 5 there is 3 mm of right foraminal and extraforaminal disc protrusion with mild right foraminal narrowing. Moderate left foraminal stenosis is seen. Moderate to marked central canal stenosis is present with lateral recess stenosis and facet and ligamentum flavum hypertrophic and change. 5. At L5-S1 there is anterior interbody fusion with endplate spur formation and ligamentous bulging. Slight narrowing of the left neural foramen is present with mild narrowing on the right. Mild central canal stenosis is seen with facet and ligamentum flavum hypertrophic and degenerative change. 6. Severe degenerative change is present involving the left SI joint which is only partially visualized. If further evaluation is clinically indicated all of imaging is recommended. COMMENT: COMPARISON: No prior exams available. Scans were performed in the sagittal and axial planes utilizing T1, T2 and inversion recovery images. Endplate and disc degeneration is seen from L3 to L5. There is a mild scoliosis convex left. Disc configurations are as described. Spondylitic changes are as noted. The conus is in the expected location. The description these findings assumes a normal count of 5 lumbar type vertebra. Electr onically Signed by Jw Castro MD on 06/19/2021 at 1220 Reported and signed by: Jw Castro MD CC: Ochoa Barrera MD;Galileo Rey M.D. Technologist: SARAHI ODELL RT(R) Transcribed D/ (1220) tCHIJCL [facility] NAME: ISABELLA TENORIO [address] [facility] [place] [address] PHYS: Jesus Jordan MD : 1970 AGE: 51 SEX: F [place], [place] [address] LOC: Y.MRI PHONE #: [phone] EXAM DATE: 06/19/2021 STATUS: REG CLI FAX #: [phone] RAD #: D/C DT PAGE 1 Signed Report Patient Name: ISABELLA TENORIO Unit No: [id number] EXAMS: CPT CODE: [id number] MRI L- SPINE W/O CONT [id number] <Continued> Orig Print D/T: S: 06/19/2021 (1223) [facility] NAME: ISABELLA TENORIO [address] [facility] [address] PHYS: Jesus Jordan MD : 1970 AGE: 51 SEX: F [place], [place] [address] LOC: DANNY PHONE #: [phone] EXAM DATE: 06/19/2021 STATUS: REG CLI FAX #: [phone] RAD #: D/C DT PAGE 2 Signed ReportTROPONIN [id number] 01:52:18 Test Item Value Reference Interpretation Comments Range TROPONIN I (test 0.011 ng/mL See_Comment [Automated code = 4047280054) message] The system which generated this result transmitted reference range : <=0.034. The reference range was not used to interpret this result as normal/abnormal . SUMIT (test code = Reference (Normal) SUMIT) Range (defined by the 99th percentile reference limit): <= 0.034 ng/mL Note: Cardiac troponin begins to rise 3-4 hours after the onset of ischemia. Repeat in 4-6 hours if the sample was drawn within 3-4 hours of the onset of the symptom and found normal. Diagnosis of myocardial injury is made with acute changes in cTn concentrations with at least one serial sample above the 99th percentile upper reference limit (URL), taken together with the patient's clinical presentation. Biotin has been reported to cause a negative bias, interpret results relative to patient's use of biotin. Lab Interpretation Normal (test code = 60770-5) [facility]. METABOLIC PANEL (48690)2021-04-23 01:40:39 Test Item Value Reference Range Interpretation Comments NA (test code = 142 mmol/L 135-145 5322719050) K (test code = 3.9 mmol/L 3.5-5.0 7049805922) CL (test code = 106 mmol/L 98-108 8958177016) CO2 TOTAL (test code = 26 mmol/L 23-31 5127356922) AGAP (test code = 2-16 1679120409) BUN (test code = 14 mg/dL 7-23 0348655377) GLUCOSE (test code = 97 mg/dL 70-110 1559231336) CREATININE (test code = 0.73 mg/dL 0.50-1.04 3440351061) TOTAL BILI (test code = 0.5 mg/dL 0.1-1.2 1994857562) CALCIUM (test code = 9.7 mg/dL 8.6-10.6 1915252201) T PROTEIN (test code = 7.8 g/dL 6.3-8.2 5788367879) ALBUMIN (test code = 4.0 g/dL 3.5-5.0 8143272134) ALK PHOS (test code = 146 U/L 34-122 H 6561878742) ALTv (test code = 25 U/L 5-35 1742-6) AST(SGOT) (test code = 41 U/L 13-40 H 2927400449) eGFR (test code = mL/min/1.73m2 7239471214) SUMIT (test code = SUMIT) Association of Glomerular Filtration Rate (GFR) and Staging of Kidney Disease* + --+ --+ ------+| GFR (mL/min/1.73 m2) ?| With Kidney Damage ?| ?Without Kidney Damage+ --------+ --------+ +| ?>90 ?| ?Stage one ?| ? Normal ?+ ---+ ---+ -------+| ?60-89 ?| ?Stage two ?| ? Decreased GFR ? + --+ --+ ------+| ?30-59 ?| ?Stage three ?| ? Stage three ? + --+ --+ ------+| ?15-29 ?| ?Stage four ? | ? Stage four ?+ ---+ ---+ -------+| ?<15 (or dialysis) ? ?| ?Stage five ? | ? Stage five ?+ ---+ ---+ -------+ *Each stage assumes the associated GFR level has been in effect for at least three months. ?Stages 1 to 5, with or without kidney disease, indicate chronic kidney disease. Notes: Determination of stages one and two (with eGFR >59mL/min/1.73 m2) requires estimation of kidney damage for at least three months as defined by structural or functional abnormalities of the kidney, manifested by either:Pathological abnormalities or Markers of kidney damage (including abnormalities in the composition of the blood or urine or abnormalities in imaging tests). Lab Interpretation Abnormal (test code = 16123-7) [facility] [id number] 01:40:38 Test Item Value Reference Range Interpretation Comments LIPASE (test code = 9955570290) 104 U/L 0-220 Lab Interpretation (test code = Normal 68610-2) [facility] WITH [id number] 01:19:59 Test Item Value Reference Range Interpretation Comments WBC (test code = See_Comment [Automated 6190-2) message] The sy stem which generated this result transmitted reference range : 4.30 - 11.10 10*3/?L. The reference range was not used to interpret this result as normal/abnormal . RBC (test code = See_Comment [Automated 789-8) message] The sy stem which generated this result transmitted reference range : 3.93 - 5.25 10*6/?L. The reference range was not used to interpret this result as normal/abnormal . HGB (test code = 12.3 g/dL 11.6-15.0 718-7) HCT (test code = 39.4 % 35.7-45.2 4544-3) MCV (test code = 84.2 fL 80.6-95.5 787-2) MCH (test code = 26.3 pg 25.9-32.8 785-6) MCHC (test code = 31.2 g/dL 31.6-35.1 L 786-4) RDW-SD (test code = 45.4 fL 39.0-49.9 43655-4) RDW-CV (test code = 14.9 % 12.0-15.5 788-0) PLT (test code = See_Comment [Automated 777-3) message] The sy stem which generated this result transmitted reference range : 166 - 358 10*3/ ?L. The reference r hector was not used to interpret this result as normal/abnormal . MPV (test code = 12.9 fL 9.5-12.9 77810-2) NRBC/100 WBC (test See_Comment [Automat ed code = 5492925722) message] The system which generated this result transmitted reference range : 0.0 - 10.0 /100 WBCs. The refer ence range was not u sed to interpret th is result as normal/abnormal . NRBC x10^3 (test code <0.01 See_Comment [Auto mated = 9906584776) message] The s [employer] which generated this result transmitted reference range : 10*3/?L. The reference range was not used to interpret this result as normal/abnormal . GRAN MAT (NEUT) % 52.9 % (test code = 770-8) IMM GRAN % (test code 0.30 % = 4657664528) LYMPH % (test code = 31.4 % 736-9) MONO % (test code = 13.7 % 5905-5) EOS % (test code = 0.8 % 713-8) BASO % (test code = 0.9 % 706-2) GRAN MAT x10^3(ANC) 3.37 10*3/uL 1.88-7.09 (test code = 0794269433) IMM GRAN x10^3 (test <0.03 0.00-0.06 code = 6311000645) LYMPH x10^3 (test code 2.00 10*3/uL 1.32-3.29 = 731-0) MONO x10^3 (test code 0.87 10*3/uL 0.33-0.92 = 742-7) EOS x10^3 (test code = 0.05 10*3/uL 0.03-0.39 711-2) BASO x10^3 (test code 0.06 10*3/uL 0.01-0.07 = 704-7) Lab Interpretation Abnormal (test code = 45926-4) [facility] [id number] 17:17:00 Test Item Value Reference Range Interpretation Comments CRP (test code = 3084658374) 0.9 mg/dL <0.8 H Lab Interpretation (test code = Abnormal 96070-8) [facility] Hospital[facility]IP[facility] PANEL (01164)(TOTAL CHOLESTEROL, TRIGLYCERIDES, HDL)2020-10-15 11:25:00 Test Item Value Reference Range Interpretation Comments CHOL (test code = 123 mg/dL 120-200 6184031125) HDL (test code = 25 mg/dL >50 L 8617421066) HDLC RATIO (test code = See_Comment H [Au tomated message] 5266011604) The system [employer] generated this result transmit dilip reference range : <=4.5. The refe rence range was not u sed to interpret th is result as normal/abnormal . TRIG (test code = 104 mg/dL 30-170 2680980999) LDL CHOL (test code = 77 mg/dL See_Comment [Auto mated message] 87659-8) The system [employer] generated this result transmit dilip reference range : <=160. The refe rence range was not u sed to interpret th is result as normal/abnormal . VLDL (test code = 21 mg/dL 5-60 1666522467) Lab Interpretation (test Abnormal code = 46803-0) [facility] METABOLIC PANEL (NA, K, CL, CO2, GLUCOSE, BUN, CREATININE, CA)2020-10-15 11:25:00 Test Item Value Reference Range Interpretation Comments NA (test code = 139 mmol/L 135-145 2518601842) K (test code = 4.0 mmol/L 3.5-5 1892679027) CL (test code = 105 mmol/L 98-108 2047168304) CO2 TOTAL (test code = 24 mmol/L 23-31 7654927640) AGAP (test code = 2-16 7641411998) BUN (test code = 13 mg/dL 7-23 4954120690) GLUCOSE (test code = 104 mg/dL 70-110 7672838746) CREATININE (test code 0.84 mg/dL 0.5-1.04 = 7518897149) CALCIUM (test code = 8.6 mg/dL 8.6-10.6 6461117618) eGFR Calculation mL/min/1.73m2 (Non-) (test code = 8291543628) eGFR Calculation mL/min/1.73m2 () (test code = 7512339463) SUMIT (test code = SUMIT) Association of Glomerular Filtration Rate (GFR) and Staging of Kidney Disease* + -+ + ---+| GFR (mL/min/1.73 m2) ?| With Kidney Damage ?| ?Without Kidney Damage+ -------+ ------+ ---------+| ?>90 ?| ?Stage one ?| ? Normal ?+ --+ -+ ----+| ?60-89 ?| ?Stage two ?| ? Decreased GFR ? + -+ + ---+| ?30-59 ?| ?Stage three ?| ? Stage three ? + -+ + ---+| ?15-29 ?| ?Stage four ? | ? Stage four ?+ --+ -+ ----+| ?<15 (or dialysis) ? ?| ?Stage five ? | ? Stage five ?+ --+ -+ ----+ *Each stage assumes the associated GFR level has been in effect for at least three months. ?Stages 1 to 5, with or without kidney disease, indicate chronic kidney disease. Notes: Determination of stages one and two (with eGFR >59mL/min/1.73 m2) requires estimation of kidney damage for at least three months as defined by structural or functional abnormalities of the kidney, manifested by either:Pathological abnormalities or Markers of kidney damage (including abnormalities in the composition of the blood or urine or abnormalities in imaging tests). [facility] WITH [id number] 11:09:00 Test Item Value Reference Range Interpretation Comments WBC (test code = See_Comment L [Automated 2690-2) message] The sy stem which generated this result transmitted reference range : 4.30 - 11.10 10*3/?L. The reference range was not used to interpret this result as normal/abnormal . RBC (test code = See_Comment [Automated 369-8) message] The sy stem which generated this result transmitted reference range : 3.93 - 5.25 10*6/?L. The reference range was not used to interpret this result as normal/abnormal . HGB (test code = 12.5 g/dL 11.6-15 718-7) HCT (test code = 38.1 % 35.7-45.2 4544-3) MCV (test code = 81.8 fL 80.6-95.5 787-2) MCH (test code = 26.8 pg 25.9-32.8 785-6) MCHC (test code = 32.8 g/dL 31.6-35.1 786-4) RDW-SD (test code = 45.1 fL 39-49.9 05943-9) RDW-CV (test code = 15.1 % 12-15.5 788-0) PLT (test code = See_Comment L [Automated 777-3) message] The sy stem which generated this result transmitted reference range : 166 - 358 10*3/ ?L. The reference r hector was not used to interpret this result as normal/abnormal . MPV (test code = 14.2 fL 9.5-12.9 H 06650-0) NRBC/100 WBC (test See_Comment [Automat ed code = 6253279089) message] The system which generated this result transmitted reference range : 0.0 - 10.0 /100 WBCs. The refer ence range was not u sed to interpret th is result as normal/abnormal . NRBC x10^3 (test code <0.01 See_Comment [Auto mated = 4370984047) message] The s ystem which generated this result transmitted reference range : 10*3/?L. The reference range was not used to interpret this result as normal/abnormal . GRAN MAT (NEUT) % 58.5 % (test code = 770-8) IMM GRAN % (test code 0.70 % = 7160674555) LYMPH % (test code = 35.0 % 736-9) MONO % (test code = 5.6 % 5905-5) EOS % (test code = 0.0 % 713-8) BASO % (test code = 0.2 % 706-2) GRAN MAT x10^3(ANC) 2.50 10*3/uL 1.88-7.09 (test code = 8208610474) IMM GRAN x10^3 (test 0.03 10*3/uL 0-0.06 code = 3519914881) LYMPH x10^3 (test code 1.50 10*3/uL 1.32-3.29 = 731-0) MONO x10^3 (test code 0.24 10*3/uL 0.33-0.92 L = 742-7) EOS x10^3 (test code = <0.03 0.03-0.39 L 711-2) BASO x10^3 (test code <0.03 0.01-0.07 = 704-7) Lab Interpretation Abnormal (test code = 24174-9) [facility] [id number] 09:27:50 Moderate constipation without bowel obstruction. RL: 460 AFC: [id number] Ordering physician: PURA FERRARI INDICATION: Constipation COMPARISON: None FINDINGS: 3 supine AP views of the abdomen and pelvis. There is moderatestool throughout the colon without bowel obstruction. The patient is statuspost right hip arthroplasty. 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 [facility], Radiant Results Inft User - 10/15/2020 3:29 AM CSTOrdering physician: PURA SALMONICATION: ConstipationCOMPARISON: NoneFINDINGS: 3 supine AP views of the abdomen and pelvis. There is moderatestool throughout the colon without bowel obstruction. T he patient is statuspost right hip arthroplasty. There is moderate osteoarthritis of the lefthip.IMPRESSIONModerate constipation without bowel obstruction.RL: 460AFC: [id number] signed by Nancy Padgett MD, PhD at 10/15/2020 3:27 AMUnCarrollton Regional Medical CenterLEGIONELLA URINARY ANTIGEN [id number] 08:35:00 Test Item Value Reference Range Interpretation Comments Legionella Urinary Negative Negative Antigen (test code = 2446800837) SUMIT (test code = SUMIT) Negative for L. pneumophilia serogroup I antigen in urine suggesting no recent or current infection. Infection due to Legionella cannot be ruled out since other serogroups and species may cause disease. Furthermore, antigens may not be present in urine during early stage of infection, or the level of antigen present in urine may be below the detection limit of the test. Lab Interpretation (test Normal code = 34176-3) [facility]NEUMOCOCCAL [id number] 08:34:00 Test Item Value Reference Range Interpretation Comments S. pneumoniae antigen (test code = Negative Negative 4672234473) Lab Interpretation (test code = Normal 38280-4) [facility] HospitalPROCALCITONIN2021-01-31 01:53:00 Test Item Value Reference Range Interpretation Comments Procalcitonin (test 0.07 ng/mL <0.07 H code = 5030794397) SUMIT (test code = SUMIT) INTERPRETATION OF PROCALCITONIN RESULTS IN ADULTS >= 18 YEARS OF AGE Initiation and discontinuation of antibiotics on patients with suspected or confirmed Lower Respiratory Tract Infection in Adults >= 18 years of age. + +-------- --------+ + -----+|Procalcitonin |Interpretation ?|Antibiotic ? ? |Considerations ? |ng/mL ? | ?|recommendation | ? + +-------- --------+ + -----+| <0.1 ? | Bacterial ? ? ?| Strongly ? ? ?| ? | ?| infection very | discouraged ? | Overruling: ? | ?| unlikely ? ? ? | ? | ? Clinically unstable ? ? ? + +-------- --------+ + ? High risk for adverse ? ? | <0.25 ?| Bacterial ? ? ?| Discouraged ? | ? outcome ? | ?| infection ? ? ?| ? | ? SEE IMPORTANT NOTE ?| ?| unlikely ? ? ? | ? | ? + +-------- --------+ + -----+| >=0.25 ? ? ? | Bacterial ? ? ?| Encouraged ? ?| ? | ?| infection ? ? ?| ? | ? | ?| likely ? | ? | Consider treatment failure ?+ +------- ---------+ -+ if levels does not decrease | >0.5 ? | Bacterial ? ? ?| Strongly ? ? ?| appropriately ? | ?| infection very | encouraged ? ?| ? | ?| likely ? | ? | ? + +-------- --------+ + -----+ Discontinuation of antibiotics in high-acuity patients with suspected or confirmed sepsis in Adults >= 18 years of age. + +-------- --------+ + -----+|Procalcitonin |Interpretation ?|Antibiotic ? ? |Considerations ? |ng/mL ? | ?|recommendation | ? + +-------- --------+ + -----+| <0.25 ?| Bacterial ? ? ?| Strongly ? ? ?| ? | ?| infection very | discouraged ? | Overruling: ? | ?| unlikely ? ? ? | ? | ? Clinically unstable ? ? ? + +-------- --------+ + ? High risk for adverse ? ? | <0.5 or drop | Bacterial ? ? ?| Discouraged ? | ? outcome ? | >80% from ? ?| infection ? ? ?| ? | ? SEE IMPORTANT NOTE ?| highest PCT ?| unlikely ? ? ? | ? | ? | level ?| ?| ? | ? + +-------- --------+ + -----+| >=0.5 ?| Bacterial ? ? ?| Encouraged ? ?| ? | ?| infection ? ? ?| ? | ? | ?| likely ? | ? | Consider treatment failure ?+ +------- ---------+ -+ if levels does not decrease | >1.0 ? | Bacterial ? ? ?| Strongly ? ? ?| appropriately ? | ?| infection very | encouraged ? ?| ? | ?| likely ? | ? | ? + +-------- --------+ + -----+ Percentage of drop of Procalcitonin calculation for Discontinuation of antibiotics in high-acuity patients with suspected or confirmed sepsis in Adults >= 18 years of age. ? Procalcitonin highest{}-Procalcitonin current{}Delta Procalcitonin = x100% ? Procalcitonin current {} IMPORTANT NOTE: Procalcitonin may be elevated without bacterial infection by physiologic stress related to trauma, baird, chronic dialysis, metastatic cancer, surgery in the past seven days, malaria, some fungal infections, and some forms of vasculitis. The interpretation algorithm may not apply to patients with immunosuppression (equivalent of >10 mg of prednisone daily), HIV with CD4 cell count < 350 cells/mm3, active malignancy on systemic chemotherapy, solid organ transplant or hematopoietic stem cell transplantation, or hospital acquired pneumonia. Additionally, some clinical trials of procalcitonin have excluded patients with shock requiring vasopressor use, acute respiratory failure requiring mechanical ventilation, or those with known lung abscess/empyema. For further information please refer to:[email or web address] Lab Interpretation Abnormal (test code = 62826-1) [facility] HospitalFERRITIN [id number] 00:36:00 Test Item Value Reference Range Interpretation Comments FERRITIN (test code = 170.0 ng/mL 11-264 5026342798) SUMIT (test code = SUMIT) Biotin has been reported to cause a negative bias, interpret results relative to patient's use of biotin. Lab Interpretation (test Normal code = 39474-3) [facility] HospitalLACTATE [id number] 00:35:00 Test Item Value Reference Range Interpretation Comments LDH (test code = 2864815649) 939 U/L 300-600 H Slight hemolysis Lab Interpretation (test Abnormal code = 28399-3) [facility] HospitalD-[id number] 00:32:00 Test Item Value Reference Interpretation Comments Range D-DIMER (test code = See_Comment H [Autom ated 3816308261) message] The system which generated this result transmitted reference range : <0.50 ?g/mL (FEU). The reference range was not used to interpret this result as normal/abnormal . SUMIT (test code = This test may be SUMIT) used in conjunction with a clinical pretest probability (PTP) assessment model to exclude venous thromboembolism (VTE) in patients suspected of deep venous thrombosis (DVT) and pulmonary embolism (PE) A D-Dimer value less than 0.50 ?g/ml (FEU) has a negative predicative value of 96 to 100% (95% CI)and 97 to 100% (95% CI) as an aid in the diagnosis of deep vein thrombosis (DVT) and pulmonary embolism when there is low or moderate pretest probability of PE or DVT. D-Dimer values are expressed in initial fibrinogen equivalent units (FEU)" The assay results should be used with other information, including the clinical context, in forming a diagnosis. Lab Interpretation Abnormal (test code = 40350-1) [facility] HospitalGLYCOSYLATED HEMOGLOBIN (A1C)2020-10-15 00:05:00 Test Item Value Reference Range Interpretation Comments HGB A1C (test code = 5.0 % 4-6 4548-4) SUMIT (test code = SUMIT) %A1C (NGSP) Interpretation (ADA)4.8-5.6 ? ? Normal or (Non-Diabetic Range)5.7-6.4 ? ? Increased Risk (Pre-Diabetic)>6.5 ?Diabetes Indicated Lab Interpretation Normal (test code = 16104-2) [facility] with [id number] 20:39:00 Test Item Value Reference Range Interpretation Comments WBC (test code = See_Comment L [Automated 4690-2) message] The sy stem which generated this result transmitted reference range : 4.30 - 11.10 10*3/?L. The reference range was not used to interpret this result as normal/abnormal . RBC (test code = See_Comment [Automated 9-8) message] The sy stem which generated this result transmitted reference range : 3.93 - 5.25 10*6/?L. The reference range was not used to interpret this result as normal/abnormal . HGB (test code = 12.8 g/dL 11.6-15 718-7) HCT (test code = 39.5 % 35.7-45.2 4544-3) MCV (test code = 81.6 fL 80.6-95.5 787-2) MCH (test code = 26.4 pg 25.9-32.8 785-6) MCHC (test code = 32.4 g/dL 31.6-35.1 786-4) RDW-SD (test code = 44.7 fL 39-49.9 08420-2) RDW-CV (test code = 15.0 % 12-15.5 788-0) PLT (test code = See_Comment L [Automated 777-3) message] The sy stem which generated this result transmitted reference range : 166 - 358 10*3/ ?L. The reference r hector was not used to interpret this result as normal/abnormal . MPV (test code = 13.5 fL 9.5-12.9 H 14137-7) IPF % (test code = 8.6 % 1.3-7.7 H Platelet count 5395830250) measured by fluorescence method. NRBC/100 WBC (test See_Comment [Automat ed code = 3455643058) message] The system which generated this result transmitted reference range : 0.0 - 10.0 /100 WBCs. The refer ence range was not u sed to interpret th is result as normal/abnormal . NRBC x10^3 (test code <0.01 See_Comment [Auto mated = 3327750271) message] The s ystem which generated this result transmitted reference range : 10*3/?L. The reference range was not used to interpret this result as normal/abnormal . GRAN MAT (NEUT) % 44.0 % (test code = 770-8) IMM GRAN % (test code 0.30 % = 7617325644) LYMPH % (test code = 47.9 % 736-9) MONO % (test code = 7.5 % 5905-5) EOS % (test code = 0.0 % 713-8) BASO % (test code = 0.3 % 706-2) GRAN MAT x10^3(ANC) 1.58 10*3/uL 1.88-7.09 L (test code = 4352024430) IMM GRAN x10^3 (test <0.03 0-0.06 code = 3196333386) LYMPH x10^3 (test code 1.72 10*3/uL 1.32-3.29 = 731-0) MONO x10^3 (test code 0.27 10*3/uL 0.33-0.92 L = 742-7) EOS x10^3 (test code = <0.03 0.03-0.39 L 711-2) BASO x10^3 (test code <0.03 0.01-0.07 = 704-7) Lab Interpretation Abnormal (test code = 40895-2) [facility] 1 [id number] 20:31:07 Overall, no acute cardiopulmonary abnormality. Mild prominence of the hilais similar prior and may represent degree of central vascular congestion. Preliminary Report Dictated by Resident: Kranthi Mccurdy MD., have reviewed this study and agree with theabove report.EXAM: XR CHEST 1VW COMPARISON: Chest x-ray 11/15/2015 HISTORY: chest pain ? TECHNIQUE: AP view of the chest. FINDINGS: Lungs/pleura: ?The lungs are underinflated and demonstrate mild perihilarvascular congestion. No definite consolidation. Although, evaluation islimited due to suboptimal penetration. No pleural effusion or pneumothoraxis identified. Heart/Mediastinum: The cardiac silhouette is normal to mildly enlarged. No acute osseous abnormality. Cholecystectomy clips. [facility], Radiant Results Inft User - 12:32 PM CSTEXAM: XR CHEST 1 VWCOMPARISON: Chest x- ray 11/15/2015HISTORY: chest pain TECHNIQUE: AP view of the chest.FINDINGS:Lungs/pleura: The lungs are underinflated and demonstrate mild perihilarvascular congestion. No definite consolidation. Although, evaluation islimited due to suboptimal penetration. No pleural effusion or pneumothoraxis identified.Heart/Mediastinum: The cardiac silhouette is normal to mildly enlarged.No acute osseous abnormality. Cholecystectomy clips.IMPRESSIONOverall, no acute cardiopulmonary abnormality. Mild prominence of the hilais similar prior and may represent degree of central vascular congestion.Preliminary Report Dictated by Resident: Kranthi Mccurdy MD., have reviewed this study and agree with theabove report.[facility] [id number] 20:25:00 Test Item Value Reference Range Interpretation Comments APPEARANCE (test code = Hazy Clear A 7183942645) COLOR (test code = Christel Yellow A 4131677850) PH (test code = 4.8-8.0 9244047646) SP GRAVITY (test code = 1.003-1.030 9920436804) GLU U QUAL (test code = Normal Normal 2506817922) BLOOD (test code = Negative Negative 1554351226) KETONES (test code = Negative Negative 3059761733) PROTEIN (test code = Negative Negative 2887-8) UROBILIN (test code = 2.0 mg/dL Normal A 1156172859) BILIRUBIN (test code = Negative Negative 2720766221) NITRITE (test code = Negative Negative 1530017282) LEUK TAMEKA (test code = Negative Negative 3097106089) RBC/HPF (test code = See_Comment [Autom ated message] 2101291937) The system [employer] generated this result transmit dilip reference range : 0 - 3 HPF. The refe rence range was not u sed to interpret th is result as normal/abnormal . WBC/HPF (test code = See_Comment [Autom ated message] 7705699421) The system [employer] generated this result transmit dilip reference range : 0 - 5 HPF. The refe rence range was not u sed to interpret th is result as normal/abnormal . BACTERIA (test code = Few Negative A 0145669987) MUCOUS (test code = Slight Negative LPF A 4376077869) SQ EPITH (test code = HPF 8829205920) HYAL CAST (test code = See_Comment H [Aut omated message] 7480114972) The system [employer] generated this result transmit dilip reference range : <=2 LPF. The refere nce range was not u sed to interpret th is result as normal/abnormal . Lab Interpretation (test Abnormal code = 17595-6) [facility] Test Item Value Reference Range Interpretation Comments APTT Patient (test See_Comment [Automat ed code = 3173-2) message] The system which generated this result transmitted reference range : 23 - 38 Seconds . The reference range was not used to interpr et this result as normal/abnormal . SUMIT (test code = SUMIT) The [facility] patient population mean normal value for aPTT is 30 seconds. Lab Interpretation Normal (test code = 91183-0) [facility] [id number] 20:11:00 Test Item Value Reference Range Interpretation Comments TROPONIN I (test 0.015 ng/mL See_Comment [Automated code = 3661650136) message] The system which generated this result transmitted reference range : <=0.034. The reference range was not used to interpret this result as normal/abnormal . SUMIT (test code = Equal or Less than SUMIT) 0.034 ng/ml---Normal ?Note: Cardiac troponin begins to rise 3-4 hours after the onset of ischemia. Repeat in 4-6 hours if the sample was drawn within 3-4 hours of the onset of the symptom and found normal. Between 0.035 and 0.120 ng/mL--- Borderline. Questionable myocardial injury or necrosis ? ?Note: Serial measurement may be necessary to confirm or exclude the diagnosis of myocardial injury or necrosis; Clinical correlation (symptoms, EKGs, imaging studies, and others) required; Repeat in 4-6 hours if clinically indicated. ? Equal or Higher than 0.121 ng/mL---Abnormal. Myocardial Injury or Necrosis Likely ? Biotin has been reported to cause a negative bias, interpret results relative to patient's use of biotin. ? Lab Interpretation Normal (test code = 46930-2) [facility] (PT[facility] / [id number] 20:10:00 Test Item Value Reference Range Interpretation Comments PROTIME PATIENT (test See_Comment [Auto mated message] code = 5964-2) The system wh ich generated this result transmitted ref erence range: 12.0 - 1 4.7 Seconds. The re ference range was not u sed to interpret this result as normal/abnor mal. INR (test code = 6301-6) Nor mal INR <1.1; Warfarin Therap eutic range 2.0 to 3. 0 or 2.5 to 3.5, dep ending upon the indica tions. Lab Interpretation (test Normal code = 76471-9) [facility] [id number] 20:09:00 Test Item Value Reference Range Interpretation Comments NT-proBNP (test code 34 pg/mL See_Comment [Autom ated = 1379779878) message] The system which generated this result transmitted reference range : <=125. The reference range was not used to interpret this result as normal/abnormal . SUMIT (test code = SUMIT) Biotin has been reported to cause a negative bias, interpret results relative to patient's use of biotin. Lab Interpretation Normal (test code = 32710-8) [facility] (ID NOW RAPID TESTING)2020-10-14 20:03:00 Test Item Value Reference Range Interpretation Comments SARS-CoV-2 Rapid ID NOW Positive Not Detected A (test code = 17971-4) SUMIT (test code = SUMIT) ID NOW COVID-19 Assay is an isothermal nucleic acid amplification test intended for the qualitative detection of nucleic acid from SARS-CoV-2 viral RNA in nasopharyngeal (SURGICAL MANAGER) specimens. It is used under Emergency Use Authorization (EUA) by FDA. The limit of detection (LOD) of the assay is 125 Genome Equivalents/mL. A positive result is indicative of the presence of SARS-CoV-2 RNA. ?Clinical correlation with patient history and other diagnostic information is necessary to determine patient infection status. A negative (Not Detected) result does not preclude SARS-CoV-2 infection. In patients with clinical symptoms and other tests that are consistent with SARS-CoV-2 infection, negative results should be treated as presumptive negative and a new specimen should be tested with alternative PCR molecular test. Invalid: Please collect a new specimen for repeat patient testing if clinically indicated. Lab Interpretation Abnormal (test code = 41773-4) [facility] (NA, K, CL, CO2, GLUCOSE, BUN, CREATININE, CA)2020-10-14 20:01:00 Test Item Value Reference Range Interpretation Comments NA (test code = 135 mmol/L 135-145 4662910089) K (test code = 4.3 mmol/L 3.5-5 2524284152) CL (test code = 102 mmol/L 98-108 4715106217) CO2 TOTAL (test code = 26 mmol/L 23-31 6576376151) AGAP (test code = 2-16 2320507890) BUN (test code = 12 mg/dL 7-23 4525357252) GLUCOSE (test code = 108 mg/dL 70-110 5291589012) CREATININE (test code = 0.73 mg/dL 0.5-1.04 3008377163) CALCIUM (test code = 8.4 mg/dL 8.6-10.6 L 7705342856) eGFR Calculation mL/min/1.73m2 (Non-) (test code = 4449662374) eGFR Calculation mL/min/1.73m2 () (test code = 8885339458) SUMIT (test code = SUMIT) Association of Glomerular Filtration Rate (GFR) and Staging of Kidney Disease* + --+ --+ ------+| GFR (mL/min/1.73 m2) ?| With Kidney Damage ?| ?Without Kidney Damage+ --------+ --------+ +| ?>90 ?| ?Stage one ?| ? Normal ?+ ---+ ---+ -------+| ?60-89 ?| ?Stage two ?| ? Decreased GFR ? + --+ --+ ------+| ?30-59 ?| ?Stage three ?| ? Stage three ? + --+ --+ ------+| ?15-29 ?| ?Stage four ? | ? Stage four ?+ ---+ ---+ -------+| ?<15 (or dialysis) ? ?| ?Stage five ? | ? Stage five ?+ ---+ ---+ -------+ *Each stage assumes the associated GFR level has been in effect for at least three months. ?Stages 1 to 5, with or without kidney disease, indicate chronic kidney disease. Notes: Determination of stages one and two (with eGFR >59mL/min/1.73 m2) requires estimation of kidney damage for at least three months as defined by structural or functional abnormalities of the kidney, manifested by either:Pathological abnormalities or Markers of kidney damage (including abnormalities in the composition of the blood or urine or abnormalities in imaging tests). Lab Interpretation Abnormal (test code = 12077-7) [facility] (ALB, T.PRO, BILI T, BU/BC, ALT, AST, ALK PHOS)2020-10-14 20:01:00 Test Item Value Reference Range Interpretation Comments TOTAL BILI (test code = 5696953858) 1.0 mg/dL 0.1-1.1 BILI UNCON (test code = 3773549009) 0.7 mg/dL 0.1-1.1 BILI CONJ (test code = 5495075003) 0.0 mg/dL 0-0.3 T PROTEIN (test code = 6467434439) 7.6 g/dL 6.3-8.2 ALBUMIN (test code = 1987899887) 3.9 g/dL 3.5-5 ALK PHOS (test code = 6911000497) 139 U/L 34-122 H ALTv (test code = 1742-6) 33 U/L 5-35 AST(SGOT) (test code = 9805308666) 65 U/L 13-40 H Lab Interpretation (test code = Abnormal 84728-8) [facility] Acid Whole [id number] 19:34:00 Test Item Value Reference Range Interpretation Comments LACTIC ACID (test code = 1.58 mmol/L 0.5-2.2 9226792934) Lab Interpretation (test code = Normal 40777-8) [facility] PEL[facility] 1/2 [id number] 09:23:00 Patient Name: ISABELLA TENORIO Unit No: [id number] EXAMS: CPT CODE: [id number] XR PELVIS 1/2 VIEWS 75610 AP view the pelvis COMMENT: COMPARISON: No prior exams available. Completed total right hip arthroplasty. Prosthesis appears to be in good position. at 0923 Reported and signed by: Corrie Spears MD CC: Alejo Gregg; Ochoa Barrera MD Technologist: BELLO RIVERA (RT.R) Transcribed D/ (922) tCHIGVG [facility] NAME: ISABELLA TENORIO [address] [facility] [address] PHYS: Alejo Ramirez : 1970 AGE: 49 SEX: F [place] [address] LOC: Y.315 A PHONE #: [phone] EXAM DATE: 06/01/2019 STATUS: DIS IN FAX #: [phone] RAD #: D/C DT 06/02/2019 PAGE 1 Signed Report Patient Name: ISABELLA TENORIO Unit No: [id number] EXAMS: CPT CODE: [id number] XR PELVIS 1/2 [id number] <Continued> Orig Print D/T: S: 06/04/2019 (925) [facility] NAME: ISABELLA TENORIO [address] [facility] [address] PHYS: Alejo Ramirezor Eulogio : 1970 AGE: 49 SEX: F [place] [address] LOC: Y.315 A PHONE #: [phone] EXAM DATE: 06/01/2019 STATUS: DIS IN FAX #: [phone] RAD #: D/C DT 06/02/2019 PAGE 2 Signed ReportBASIC METABOLIC [id number] 07:14:00 Test Item Value Reference Range Interpretation Comments SODIUM (test code = 141 mmol/L 136-145 N NA) POTASSIUM (test code = 4.6 mmol/L 3.5-5.1 N K) CHLORIDE (test code = 104.0 mmol/L 98-107 N CL) CARBON DIOXIDE (test 25.3 mmol/L 21-32 N code = CO2) GLUCOSE (test code = 89 mg/dL 70-110 N GLU) BLOOD UREA NITROGEN 14 mg/dL 7-18 N (test code = BUN) GLOMERULAR FILTRATION 84.3 >60 Unit o f measure: RATE (test code = GFR) mL/mi n/1.73 l1Swlrdtzec Range:Healthy Adults >90 mL/min/1.73 m2 For Chronic Kidney Disease: St age II Mild Decrease in GFR 60-90 St age III Moderate Decrease in GFR 30-59 Stage IV Severe Decre ase in GFR 15- 29 Stage V Kidney Failure <15 CREATININE (test code 0.86 mg/dL 0.55-1.30 N = CREAT) CALCIUM (test code = 8.8 mg/dL 8.2-10.1 N CA) HGB [id number] 06:21:00 Test Item Value Reference Range Interpretation Comments HEMOGLOBIN (test code = HGB) 10.2 g/dL 12-16 L HEMATOCRIT (test code = HCT) 31.5 % 37-47 L - XR PELVIS 1/2 [id number] 12:04:00 Patient Name: ISABELLA TENORIO Unit No: [id number] EXAMS: CPT CODE: [id number] XR PELVIS 1/2 VIEWS 87422 INTRAOPERATIVE LEG LENGTH FILM COMMENT: COMPARISON: Noprior exams available. In progress right hip replacement is noted. at 1204 Reported and signed by: Jw Castro MD CC: Alejo Gregg; Ochoa Barrera MD Technologist: BELLO RIVERA (RT.R) Transcribed D/ (5724) tBONIFACIO [facility] NAME: ISABELLA TENORIO [address] [facility] PHYS: Alejo Ramirez : 1970 AGE: 49 SEX: F [place] [address] LOC: Y.998 7 PHONE #: [phone] EXAM DATE: 06/01/2019 STATUS: ADM IN FAX #: [phone] RAD #: D/C DT PAGE 1 Signed Report Patient Name: ISABELLA TENORIO Unit No: [id number] EXAMS: CPT CODE: [id number] XR PELVIS 1/2 VIEWS 25303 <Continued> Orig Print D/T: S: 06/01/2019 (3113) [facility]: [facility] [address] [facility] PHYS: Alejo Ramirez : 1970 AGE: 49 SEX: F [place] [address] LOC: Y.998 7 PHONE #: [phone] EXAM DATE: 06/01/2019 STATUS: ADM IN FAX #: [phone] RAD #: D/C DT PAGE 2 Signed Report- XR PELVIS 1/2 [id number] 12:03:00 Patient Name: ISABELLA TENORIO Unit No: [id number] EXAMS: CPT CODE: [id number] XR PELVIS 1/2 VIEWS 67721 INTRAOPERATIVE LEG LENGTH FILM COMMENT: COMPARISON: Noprior exams available. In progress right hip replacement is noted. at 1203 Reported and signed by: Jw Castro MD CC: Alejo Gregg; Ochoa Barrera MD Technologist: BELLO RIVERA (RT.R) Transcribed D/ (2713) [facility]: ISABELLA TENORIO [address] [facility] PHYS: Alejo Ramirez : 1970 AGE: 49 SEX: F [place] [address] LOC: Y.998 7 PHONE #: [phone] EXAM DATE: 06/01/2019 STATUS: ADM IN FAX #: [phone] RAD #: D/C DT PAGE 1 Signed Report Patient Name: ISABELLA TENORIO Unit No: [id number] EXAMS: CPT CODE: [id number] XR PELVIS 1/2 VIEWS 41394 <Continued> Orig Print D/T: S: 06/01/2019 (1206) [facility]: [facility] [address] [facility] [address] PHYS: GOYRO - CristinoAlejo : 1970 AGE: 49 SEX: F [place], [place] [address] LOC: Y.998 7 PHONE #: [phone] EXAM DATE: 06/01/2019 STATUS: ADM IN FAX #: [phone] RAD #: D/C DT PAGE 2 Signed ReportAB HIV 19:41:00 Test Item Value Reference Range Interpretation Comments AB HIV 1 (test code NONREACTIVE NONREACTIVE DONE AT: [facility] = HIV1AB) [place] [id number] [place], [place] [address]Done by [employer] aur 4th Gen HIV Ag/Ab C ombo Screen AB HIV 1 19:40:00 Test Item Value Reference Range Interpretation Comments AB HIV 1 2 (test NONREACTIVE NONREACTIVE Done by S [employer] code = [id number]) 4th Gen HIV Ag/Ab Combo Screen COMPREHENSIVE METABOLIC [id number] 12:48:00 Test Item Value Reference Range Interpretation [...] RATE (test code = GFR) mL/mi n/1.73 p2Vroppzocy Range:Healthy Adults >90 mL/min/1.73 m2 For Chronic [...] H TOTAL (test code = ALKP) URINALYSIS [id number] 12:07:00 Test Item Value Reference Range Interpretation [...] = MUCU) 2+ /LPF NONE SEEN PROTHROMBIN [id number] 12:05:00 Test Item Value Reference Range Interpretation [...] v garcia IS PATIENT ON ANTICOAGULANTS ? [facility] been notified if Patient is on Heparin Drip? NOTHROMBOPLASTIN TIME [id number] 12:05:00 Test Item Value Reference Range Interpretation Comments PTT ACTIVATED (test code = APTT) 31.7 secs 24.9-37.0 N IS PATIENT ON ANTICOAGULANTS ? [facility] been notified if Patient is on Heparin Drip? NOCBC W/AUTO [id number] 11:37:00 Test Item Value Reference Range Interpretation [...]
[2021-08-29] MEDS ORDERED: HYDROCODONE/APAP 10/325 TAB ONE (12:07)
[2021-08-29] MEDS ORDERED: ONDANSETRON 4 MG (ODT) TAB ONE (12:07)
[2021-08-29] MEDS ORDERED: DIAZEPAM 5 MG TABLET ONE (12:10)
[2021-08-29 14:43] LABS: SARS-COV-2 RT PCR NEGATIVE (NEGATIVE)
[2021-08-29] MEDS ORDERED: TETRACAINE HCL 0.5% 4ML OPTH ONE (14:46)
[2021-08-29] MEDS ORDERED: CEFTRIAXONE 1000 MG/VIAL ONE (14:47)
[2021-08-29] MEDS ORDERED: KETOROLAC 30 MG/ML INJ ONE (15:19)
--- NOTE | 2021-08-29 16:52 | RAD REPORT ---
EXAM DESCRIPTION: CT - Head Brain Wo Cont - 08/29/2021 4:16 pm CLINICAL HISTORY: Headache COMPARISON: 2019 TECHNIQUE: Computed axial tomography of the head was obtained. IV contrast was not requested. All CT scans are performed using dose optimization technique as appropriate and may include automated exposure control or mA/KV adjustment according to patient size. FINDINGS: An intracranial bleed is not seen . The ventricles are normal in caliber. No extra-axial fluid collection is noted. At the sella turcica Opacifications of the left mastoids. Mild sphenoid sinusitis IMPRESSION: Left mastoids are opacified which may indicate mastoiditis. Mild sphenoid sinusitis No acute intracranial abnormality is seen. If patient's symptoms persist MRI of the brain would be r ecommended.
--- NOTE | 2021-08-29 17:17 | EDPHYS ---
Physician Documentation [facility] Name: Emani Roy Age: 51 yrs Sex: Female : 1970 Arrival Date: 08/29/2021 Time: 11:18 Bed 12 Private MD: Ochoa Barrera B ED Physician Adolfo Frias HPI: 08/29 17:06 This 51 yrs old Black Female presents to ER via Ambulatory with complaints of jmm Dizziness, Headache, Ear Pain. 17:06 The patient presents with sense of spinning. Onset: The symptoms/episode began/occurred jmm acutely, this morning. Modifying factors: The symptoms are alleviated by nothing, the symptoms are aggravated by nothing. Associated signs and symptoms: Pertinent positives: earache. The patient has not experienced similar symptoms in the past. 51-year-old female with history of lupus the presents emerged part with acute onset dizziness beginning last night around 4 AM. Patient complains of dizziness with left ear pain. Denies fever or congestion.. Historical: - Allergies: 11:29 No Known Drug Allergies; ll1 - PMHx: 11:29 Gout; Lupus; back problems with arthritis.; L3-L5 bulging discs; ll1 - PSHx: 11:29 R total hip; ll1 - Immunization history:: Client reports receiving the 2nd dose of the Covid vaccine. - Social history:: Smoking status: Patient denies any tobacco usage or history of. ROS: 17:06 Constitutional: Negative for fever, chills, and weight loss. jmm 17:06 ENT: Positive for ear pain. 17:06 Neuro: Positive for dizziness. 17:06 All other systems are negative. Exam: 17:06 Constitutional: This is a well developed, well nourished patient who is awake, alert, jmm and in no acute distress. Head/Face: atraumatic. Eyes: EOMI, no conjunctival erythema appreciated ENT: Moist Mucus Membranes Neck: Trachea midline, Supple Chest/axilla: Normal chest wall appearance and motion. Cardiovascular: Regular rate and rhythm. No edema appreciated 17:06 Abdomen/GI: Non distended, soft Back: Normal ROM Skin: General appearance color normal MS/ Extremity: Moves all extremities, no obvious deformities appreciated, no edema noted to the lower extremities Neuro: Awake and alert, normal gait Psych: Behavior is normal, Mood is normal, Patient is cooperative and pleasant 17:06 ENT: TM's: erythema, that is moderate, on the left. Vital Signs: 11:30 BP 159 / 112; Pulse 97; Resp 18; Temp 98.8; Pulse Ox 100% ; Weight 134.72 kg; Height 5 ll1 ft. 6 in. (167.64 cm); Pain 10/10; 13:55 BP 154 / 92; Pulse 90; Resp 16; Temp 98.7; Pulse Ox 100% ; jh5 11:30 Body Mass Index 47.94 (134.72 kg, 167.64 cm) ll1 MDM: 11:58 Patient medically screened. [facility] 17:10 Data reviewed: vital signs, nurses notes. Counseling: I had a detailed discussion with [facility] the patient and/or guardian regarding: the historical points, exam findings, and any diagnostic results supporting the discharge/admit diagnosis, the need for outpatient follow up, to return to the emergency department if symptoms worsen or persist or if there are any questions or concerns that arise at home. 17:15 ED course: Patient's case was discussed with Dr. Carty whom recommended outpatient [facility] antibiotics and will follow the patient 1 week.. 08/29 11:58 Order name: SARS-COV-2 RT PCR (Document "Date of Onset" if Symptomatic) [facility] 08/29 11:58 Order name: Flu [facility] 08/29 13:57 Order name: COVID-19/FLU A+B; Complete Time: 14:45 [facility] 08/29 15:15 Order name: CT Head Brain wo Cont; Complete Time: 16:54 [facility] Administered Medications: 12:17 Drug: [place] (HYDROcodone-acetaminophen) 10 mg-325 mg 1 tabs Route: PO; 5 12:17 Drug: Valium (diazepam) 5 mg Route: PO; 5 12:18 Drug: Ondansetron 4 mg Route: PO; 5 14:48 Drug: Tetracaine Solution (0.5 %) 1 application Route: Topical; Site: affected area; 5 14:48 Drug: Rocephin (cefTRIAXone) 1 grams Route: IM; Site: left ventrogluteal; 5 15:33 Drug: Ketorolac 30 mg Route: IM; Site: left deltoid; 5 Disposition Summary: 08/29/21 17:16 Discharge Ordered Location: Home [facility] Condition: Stable [facility] Diagnosis - Acute serous otitis media, left ear [facility] Followup: [facility] - With: Humaira Carty MD - When: 2 - 3 days - Reason: Recheck today's complaints, Continuance of care, Re-evaluation by your physician Followup: [facility] - With: Humaira Carty MD - When: 1 week - Reason: Recheck today's complaints, Continuance of care, Re-evaluation by your physician Discharge Instructions: - Discharge Summary Sheet [facility] - Otitis Media, Adult [facility] Forms: - Medication Reconciliation Form [facility] - Thank You Letter [facility] - Antibiotic Education [facility] - Prescription Opioid Use [facility] Prescriptions: - Augmentin 875-125 mg Oral Tablet - take 1 tablet by ORAL route every 12 hours for 10 days; 20 tablet; Refills: 0, [facility] Product Selection Permitted - Ibuprofen 800 mg Oral Tablet - take 1 tablet by ORAL route every 8 hours As needed take with food; 30 tablet; [facility] Refills: 0, Product Selection Permitted - Meclizine 25 mg Oral Tablet - take 1 tablet by ORAL route every 8 hours As needed; 30 tablet; Refills: 0, [facility] Product Selection Permitted Addendum: 09/01/2021 07:17 Co-signature as Attending Physician, Adolfo Frias MD. r n Signatures: Dispatcher [employer] EDMS Lazaro Torrez PA PA Adolfo Iglesias MD MD rn Lewis, Lynsay, RN RN ll1 Mily Longoria RN RN jh5 Corrections: (The following items were deleted from the chart) 08/29 11:30 11:29 PSHx: back L3-L5 bulding discs; ll1 ll1 13:57 11:59 SARS-COV-2 RT PCR ordered. EDMS EDMS 13:59 11:59 Influenza Screen (A ordered. EDMS EDMS
--- NOTE | 2021-08-29 17:17 | ER ---
Nurse's Notes [facility] Name: Emani Roy Age: 51 yrs Sex: Female : 1970 Arrival Date: 08/29/2021 Time: 11:18 Bed 12 Private MD: Ochoa Barrera B Diagnosis: Acute serous otitis media, left ear Presentation: 08/29 11:30 Chief complaint: Patient states: L sided HORNER, dizzy, ear pain since 4 am. No known ll1 fever. Coronavirus screen: Vaccine status: Patient reports receiving the 2nd dose of the covid vaccine. Client denies travel out of the [place] in the last 14 days. At this time, the client does not indicate any symptoms associated with coronavirus-19. Ebola Screen: Patient denies travel to an Ebola-affected area in the 21 days before illness onset. Initial Sepsis Screen: Does the patient meet any 2 criteria? No. Patient's initial sepsis screen is negative. Does the patient have a suspected source of infection? Yes: Other: ear infection. Risk Assessment: Do you want to hurt yourself or someone else? Patient reports no desire to harm self or others. Onset of symptoms was August 29, 2021. 11:30 Method Of Arrival: Ambulatory ll1 11:30 Acuity: ARAINNE 3 ll1 Triage Assessment: 11:50 Headache History: Denies prior headaches. General: Appears in no apparent distress. jh5 uncomfortable, obese, well groomed, well developed, Behavior is calm, cooperative, appropriate for age. Pain: Pain currently is 10 out of 10 on a pain scale. Pain began gradually, Also complains of ringing in ears, pain in ears, causing pain to shoot up into her head causing headache, dizziness. Historical: - Allergies: 11:29 No Known Drug Allergies; ll1 - PMHx: 11:29 Gout; Lupus; back problems with arthritis.; L3-L5 bulging discs; ll1 - PSHx: 11:29 R total hip; ll1 - Immunization history:: Client reports receiving the 2nd dose of the Covid vaccine. - Social history:: Smoking status: Patient denies any tobacco usage or history of. Screenin:49 Abuse screen: Denies threats or abuse. Denies injuries from another. Nutritional jh5 screening: No deficits noted. Tuberculosis screening: No symptoms or risk factors identified. Fall Risk None identified. Assessment: 11:48 General: Appears in no apparent distress. uncomfortable, obese, well groomed, well jh5 developed, well nourished, Behavior is calm, cooperative, appropriate for age. Pain: Complains of pain in right ear and left ear. Neuro: Level of Consciousness is awake, alert, obeys commands, Oriented to person, place, time, situation, Appropriate for age Porter Luggage are equal bilaterally Moves all extremities. Gait is steady, Speech is normal, Pupils are PERRLA, Intact. Vital Signs: 11:30 BP 159 / 112; Pulse 97; Resp 18; Temp 98.8; Pulse Ox 100% ; Weight 134.72 kg; Height 5 ll1 ft. 6 in. (167.64 cm); Pain 10/10; 13:55 BP 154 / 92; Pulse 90; Resp 16; Temp 98.7; Pulse Ox 100% ; jh5 11:30 Body Mass Index 47.94 (134.72 kg, 167.64 cm) 1 ED Course: 11:18 Patient arrived in ED. as 11:18 Ochoa Barrera MD is Private Physician. as 11:30 Arm band placed on Patient placed in an exam room, on a stretcher. 1 11:32 Triage completed. 1 11:35 Lazaro Torrez PA is [facility] 11:35 Adolfo Frias MD is Attending Physician. [facility] 11:38 Mily Longoria, RAISA is Primary Nurse. 5 11:49 Patient has correct armband on for positive identification. Bed in low position. Call [facility] light in reach. Side rails up X 1. 11:49 No provider procedures requiring assistance completed. 5 16:16 CT Head Brain wo Cont In Process Unspecified. EDMS 17:16 Humaira Carty MD is Referral Physician. [facility] 17:16 Referral Physician role handed off by Humaira Carty MD [facility] 17:16 Humaira Carty MD is Referral Physician. [facility] Administered Medications: 12:17 Drug: [place] (HYDROcodone-acetaminophen) 10 mg-325 mg 1 tabs Route: PO; [facility] 12:17 Drug: Valium (diazepam) 5 mg Route: PO; [facility] 12:18 Drug: Ondansetron 4 mg Route: PO; 5 14:48 Drug: Tetracaine Solution (0.5 %) 1 application Route: Topical; Site: affected area; 5 14:48 Drug: Rocephin (cefTRIAXone) 1 grams Route: IM; Site: left ventrogluteal; 5 15:33 Drug: Ketorolac 30 mg Route: IM; Site: left deltoid; 5 Outcome: 17:16 Discharge ordered by MD. neumann 17:32 Patient left the ED. 5 Signatures: Dispatcher [employer] EDMS Lazaro Torrez PA PA jmm Martinez, Amelia as Lewis, Lynsay, RN RN 1 Mily Longoria RN RN 5 Corrections: (The following items were deleted from the chart) 11:30 11:29 PSHx: back L3-L5 bulding discs; ll1 ll1
[2021-08-29 17:38] VITALS: O2SAT 100
[2021-08-29 17:39] VITALS: BP 154/92; TEMP 98.7
== END 2021-08-29 17:32 | disposition home or self-care (01) ==
LOC: ER 11:16
DX: H65.02 Acute serous otitis media, left ear (principal)
CPT/HCPCS: 0240U; 70450; 96372; 99283